=== PATIENT | female | born 1945 | race Caucasian/White ===

== ENCOUNTER 2021-11-21 17:07 | Inpatient (IN) | payer MEDICARE, SELFPAY ==
[2021-11-21] VITALS (11 sets, daily range): BP systolic 94–164; BP diastolic 51–90; PULSE 91–119; RESP 22–95; TEMP 37; O2SAT 30–100
--- NOTE | ~2021-11-21 | XR_ITS ---
EXAMINATION: XR chest 1V portable EXAM DATE: 11/24/2021 14:20 INDICATION: COVID pneumonia. TECHNIQUE: Portable AP frontal chest x-ray was obtained. Comparison is made to prior examination from 11/23/21. FINDINGS: Moderate amount of bilateral mid and lower lung zone ill-defined abnormal reticulation, air space disease, pneumonia and/or edema. Please clinically correlate. No pneumothorax or pleural effusi on. Mild cardiomegaly. There are mild bony degenerative changes. IMPRESSION: Moderate amount of pneumonia and/or edema unchanged. Reviewed, dictated and finalized at location G. TED CLOTH EXAMINER
--- NOTE | ~2021-11-21 | US_ITS ---
EXAMINATION: US venous doppler LE EXAM DATE: 11/22/2021 09:52 INDICATION: Pulmonary embolism, lower extremity swelling. TECHNIQUE: Multiple grayscale, color flow and Doppler images of the lower extremity deep venous syste ms bilaterally were obtained and reviewed. There is no prior study for comparison. FINDINGS: Right side: The right common femoral, femoral and profunda veins demonstrate normal color flow, respi ratory variation, augmentation and compressibility. Compressibility, color flow confirmed within the right popliteal, posterior tibial, peroneal, and greater saphenous veins. Left side: The left common femoral, femoral and profunda veins demonstrate normal color flow, respira tory variation, augmentation and compressibility. Compressibility, color flow confirmed within the l eft popliteal, posterior tibial, peroneal, and greater saphenous veins. IMPRESSION: No lower extremity deep venous thrombosis bilaterally. Reviewed, dictated and finalized at location A. TRIC CLOCK MECHANIC
--- NOTE | ~2021-11-21 | XR_ITS ---
EXAMINATION: XR chest 1V portable INDICATION: Shortness of breath, COVID 19 positive TECHNIQUE: Portable AP chest at 1831 hours COMPARISON: 05/06/2007 FINDINGS: There are airspace opacities throughout the left lung and in the right mid and lower lung z ones. Small pleural effusions are suggested. There is no pneumothorax. The cardiomediastinal silhouet te is stable. IMPRESSION: 1. Airspace opacities throughout the left lung and in the right mid and lower lung zones, likely COVI D 19 pneumonia. 2. Possible small pleural effusions. Reviewed, dictated and finalized at location F. QUER IMPRESSION: 1. Airspace opacities throughout the left lung and in the right mid and lower l gene zones, likely COVID 19 pneumonia. 2. Possible small pleural effusions.
--- NOTE | ~2021-11-21 | XR_ITS ---
EXAMINATION: XR chest 1V portable DATE: 11/23/2021 08:39 INDICATION: COVID. Shortness of breath. TECHNIQUE: frontal view of the chest was obtained. COMPARISON: Chest radiograph and CT dated 11/21/2021 FINDINGS: Slight interval improvement in groundglass opacities in the left mid and right lower lung zones and m ore dense opacities with air bronchograms in the left lower lung zone consistent with improving pneum onia. No pleural effusion or pneumothorax. Cardiomegaly. IMPRESSION: 1. Slight decrease in bilateral basilar predominant lung disease consistent with improving pneumonia. 2. Cardiomegaly. Reviewed, dictated and finalized at location A. MOBILE SERVICE ADVISOR IMPRESSION: 1. Slight decrease in bilateral basilar predominant lung disease consistent wit h improving pneumonia. 2. Cardiomegaly.
--- NOTE | ~2021-11-21 | XR_ITS ---
XR chest 1V portable DATE: 11/28/2021 06:06 INDICATION: Covid pneumonia TECHNIQUE: Portable AP chest on 11/28/2021 0545 hours COMPARISON: 11/24/2021 portable AP chest at 1412 hours FINDINGS: Cardiomegaly. There is pulmonary vascular congestion and redistribution. The minor fissure is prominent suggesting subpleural edema. There are diffuse bilateral pulmonary infiltrates, most prominent in the lower lung zones, with bilat eral lower lobe air bronchograms. Differential diagnosis includes pulmonary edema and/or pneumonia. IMPRESSION: Diffuse bilateral pulmonary infiltrates with greater prominence in the lower lung zones i ncluding bilateral lower lobe air bronchograms, increased since 11/24/2021 Congestive changes, increased since 11/24/2021 Cardiomegaly Reviewed, dictated and finalized at location A. UNITY INTEGRATION SPECIALIST IMPRESSION: Diffuse bilateral pulmonary infiltrates with greater prominence in the lower lung zones including bilateral lower lobe air bronchograms, increased since 11/24/2021 Congestive changes, increased since 11/24/2021 Cardiomegaly
--- NOTE | ~2021-11-21 | CT_ITS ---
EXAMINATION: CTA chest PE protocol DATE: 11/21/2021 21:31 INDICATION: Shortness of breath and weakness, COVID 19 positive TECHNIQUE: Computed tomography angiography (CTA) of the chest was performed with 100 mL Omnipaque-350 intravenous contrast timed to evaluate the pulmonary arteries. Coronal maximum intensity projection 3D-reconstructions were created by the technologist. The dose-length product (DLP) was 644.16 mGy-cm. Automated exposure control and iterative reconstruction technique were employed. COMPARISON: None. FINDINGS: The pulmonary arteries are well-opacified. Respiratory motion artifact limits the examinati on. There are pulmonary emboli in the right middle lobe. There are interstitial and airspace opacitie s in the mid and lower lung zones. Patchy groundglass opacities are present in the lung apices. There are trace pleural effusions. No pneumothorax is identified. The heart size is normal. There is mild thoracic spondylosis. IMPRESSION: 1. Acute pulmonary emboli in the right middle lobe. 2. Diffuse lung disease, consistent with COVID 19 pneumonia. These findings were discussed with Dr. Greta MD in the Emergency Department at 2146 hours on 11/10. Reviewed, dictated and finalized at location F. SHADES SUPERVISOR IMPRESSION: 1. Acute pulmonary emboli in the right middle lobe. 2. Diffuse lung disease, consistent with COVID 19 pneumonia. These findings were discussed with Dr. Greta MD in the Emergency Departmen t at 2146 hours on 11/21/2021.
--- NOTE | 2021-11-21 17:38 | PCCCNOTE ---
Called by charge nurse concerning pt. Per EMS pt has severe hoarding problem and the house maybe condemned. Pt has 2 daughters who both state that they are currently COVID positive. Pt is currently being evaluated for medical stability. Pt will probably not be able to return home.
--- NOTE | 2021-11-21 17:59 | ED.GENADULT ---
HPI - General Adult General Chief complaint: Upper Respiratory Infection Stated complaint: FEVER/DIFFICULTY BREATHING Time Seen by Provider: 11/21/21 17:55 History of Present Illness HPI narrative: 76-year-old female present to the emergency department for evaluation of COVID symptoms. EMS states that the patient has been on her couch since November 12. They report that the patient's daughter was bringing her food to the couch and patient had not been leaving the couch. EMS states that the patient had been urinating and defecating on the couch. EMS states that the patient's daughter also has COVID. Patient was saturating in the 70s upon arrival by EMS and patient was placed on a nonrebreather. When asked if the patient was vaccinated the patient replied COVID is not real, my daughter does not have covid . Related Data Allergies Allergy/AdvReac Type Severity Reaction Status Date / Time No Known Allergies Allergy Verified 11/21/21 17:24 Review of Systems Review of Systems: CONSTITUTIONAL: Denies fever, chills, or sweats. EYES: Denies visual changes, redness, or discharge. ENT: Denies rhinorrhea, congestion, sore throat, or otalgia. CARDIOVASCULAR: Denies chest pain, palpitations, or edema. RESPIRATORY: Does report cough and shortness of breath GASTROINTESTINAL: Denies abdominal pain, nausea, vomiting, or diarrhea. GENITOURINARY: Denies dysuria or hematuria. SKIN: Denies rash or itching. MUSCULOSKELETAL: Denies back pain, joint pain, or myalgia. NEUROLOGIC: Denies headache, numbness, or weakness. PSYCHIATRIC: Denies anxiety or depression. 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 Controlled diabetes mellitus type II without complication Essential (primary) hypertension Family history of colon cancer in mother Fatigue Fibromyalgia Gastro-esophageal reflux disease without esophagitis Mixed hyperlipidemia Obesity Recurrent UTI Syncope Vitamin B12 deficiency anemia Vitamin D deficiency, unspecified Surgical History Surgical History History of section History of tonsillectomy S/P foot surgery, left S/P foot surgery, right Family History Family History Mother Carcinoma of colon Family history of cardiovascular disease, Onset Age: 94 Sibling Carcinoma of colon Family history of malignant neoplasm of ovary, Onset Age: 77 Patient's brother is , Onset Age: 60 Father Patient's father is Family history of lung cancer, Onset Age: 67 Grandparent Family history of cardiovascular disease Other Family history of malignant neoplasm of male breast Social History Social History (Updated 11/22/21 @ 06:22 by Yaa King DO) Social History: The patient is and lives alone. the patient lives in a hoarding situation. Primary care physician: Dr. Paulo Robins Code status: Full code Surrogate decision maker: Brittani Chamberlain (daughter) Smoking status: Never smoker Second hand tobacco smoke exposure: No Alcohol intake: current Substance use: never Substance use type: does not use Living arrangements: alone Spiritual care concerns: No Exam Narrative: APPEARANCE: Ill-appearing but no distress HEAD: normocephalic, atraumatic. EYES: PERRLA/EOMI, conjunctivae clear. NECK: Supple. No adenopathy, no masses. RESPIRATORY: Bilateral rhonchi CARDIOVASCULAR: Tachycardia ABDOMINAL: Soft, nontender, nondistended, normal bowel sounds MUSCULOSKELETAL: Moves all extremities. Strength/ROM intact, No edema, No calf tenderness. NEURO: Alert. Cranial nerves II through XII int
[2021-11-21] MEDS: DEXAMETHASONE 2 MG TABLET 6 MG PO (18:23)
--- NOTE | 2021-11-21 19:10 | PC.NURSE ---
This RN into room to swab pt for COVID. Pt states I do not want to be swabbed. Covid is not real. RN speaking with pt regarding COVID swab and explaining why doctor would like it. Pt states My daughter does not have COVID. NO one has COVID. COVID is not real. EDP and charge loader made aware pt continues declining to be swabbed for COVID.
[2021-11-21] MEDS: SODIUM CHLORIDE 0.9% IV 1,000 ML 999 ML IV CONT (19:15)
--- NOTE | 2021-11-21 19:20 | PC.NURSE ---
Report given to JILLIAN Joiner
--- NOTE | 2021-11-21 19:20 | PC.NURSE ---
Assumed care of pt at this time. Pt alert and upright on stretcher, on Bipap. Updated on POC.
[2021-11-21 20:16] LABS: Basophils Absolute Auto 0.1 K/mm3 (0.0-0.1); Basophils Percent Auto 0.6 % (0.2-1.2); Eosinophils Percent Auto 0.1 % (0-4.4); Hematocrit 45.6 % (37.0-47.0); Hemoglobin 15.3 g/dL (12.0-15.0); Immature Granulocyte Absolute 1.01 K/mm3 (0.00-0.031); Immature Granulocyte Percent A 5.4 % (0-0.5); Lymphocytes Absolute Auto 0.74 K/mm3 (0.9-3.2); Mean Corpuscular HGB Conc 33.6 g/dl (32-36); Mean Corpuscular Hemoglobin 32.1 pg (26-34); Mean Corpuscular Volume 95.8 fl (80-100); Mean Platelet Volume 11.2 fl (7.4-10.4); Monocytes Absolute Auto 0.8 K/mm3 (0.1-0.6); Monocytes Percent Auto 4.5 % (2.6-8.5); Neutrophils Percent Auto 85.4 % (45.5-73.1); Platelet Count Result 243 k/mm3 (150-375); Red Blood Count 4.76 M/mm3 (4.2-5.4); Red Cell Distribution Width 13.3 % (11.5-14.5); White Blood Count 18.7 K/mm3 (4.5-10.0)
[2021-11-21 20:24] LABS: Alanine Aminotransferase 58 U/L (4-35); Albumin Level 3.1 g/dL (3.5-5.1); Alkaline Phosphatase 47 U/L (38-126); Anion Gap 6 mmol/L (8-16); Aspartate Amino Transferase 67 U/L (14-36); Blood Urea Nitrogen 38 mg/dL (7-17); Calcium 8.4 mg/dL (8.4-10.2); Carbon Dioxide 31 mmol/L (22-30); Chloride 95 mmol/L (98-107); Estimated CRCL calculation 54 ml/min; Estimated Glomerular Filt Rate > 60; Glucose 172 mg/dL (65-110); Potassium 4.1 mmol/L (3.4-5.0); Sodium 132 mmol/L (137-145)
[2021-11-21 20:26] LABS: INR 1.2; Prothrombin Time 15.3 Seconds (11.1-14.7)
[2021-11-21 20:27] LABS: CRP 8.9 mg/dL (<1.0); Lactate Dehydrogenase 824 U/L (313-618)
[2021-11-21 20:55] LABS: D Dimer 2.94 ug/mL (<0.48)
--- NOTE | 2021-11-21 21:15 | PC.NURSE ---
Addendum entered by Marisel Leon RN 11/21/21 21:15: Respiratory to assist Original Note: Pt to CT at this time.
--- NOTE | 2021-11-21 21:18 | ECG_ITS ---
Measurements Intervals [place] Rate: 114 P: 49 [place]: 130 QRS: -37 QRSD: 83 T: -15 QT: 318 QTc: 439 Interpretive Statements SINUS TACHYCARDIA WITH SHORT [place] INTERVAL ATRIAL PREMATURE COMPLEXES LEFT AXIS DEVIATION VOLTAGE CRITERIA FOR LVH BORDERLINE T WAVE ABNORMALITY- ANTEROLAT/INF LEADS BASELINE ARTIFACT- II, V3 ABNORMAL ECG Electronically Signed On 11-22-2021 6:03:25 MARKETING INFORMATION ANALYST by Jelani Mayo D.O.
[2021-11-21 21:46] LABS: Alveolar/Arterial O2 Gradient 614.4 mmHg; Base Excess ABG 1.8 mEq/l (+/-2.0); Fractional Inspired Oxygen 100 %; HCO3 ABG 25.2 mEq/l (22.0-26.0); Oxygen Content ABG 18.9 %vol (16.0-22.0); Oxygen Saturation ABG 93.5 % (95.0-100.0); Oxyhemoglobin 91.4 % THb (90.0-100.0); PCO2 ABG 35.6 mmHg (35.0-45.0); PO2 FiO2 Ratio Arterial Blood 0.63 %; Total Hemoglobin 14.7 g/dL (12.0-18.0); pH ABG 7.467 (7.350-7.450)
[2021-11-21 21:48] LABS: Device BIPAP; Inspiratory Pressure 12 cmH2O; Modified Allen's Test Pass; Site Drawn LEFT RADIAL
[2021-11-21 21:49] LABS: Expiratory Pressure 5 cmH2O
--- NOTE | 2021-11-21 21:53 | PM.IMHP ---
H&P: HPI History of Present Illness Date/Time: 11/21/21 22:30 Chief Complaint: Shortness of breath Narrative: 76-year-old female past medical history of diabetes, hypertension and hyperlipidemia who presented to the ER from home with shortness of breath, fever and weakness. The patient's daughter who is been bringing the patient food and water is known to be positive for COVID. The patient had not been vaccinated against COVID and does not believe that COVID is real. She has voiced several conspiracy theories. She states that her symptoms are due to strep throat. She she believes that she has strep throat due to the sensation of having multiple white ulcers in her mouth. She states that she has had strep throat multiple times in this is always how she feels. The patient is currently refusing a COVID test. When EMS arrived to the patient's home she was satting 70% on room air. She was placed on a non-rebreather was satting 88-89% on arrival to the ER. She was placed on BiPAP in the ER. When patient arrived to the ER she was covered in feces and stool. Her daughter reported the patient had not gotten off the couch since November 12. She had skin breakdown noted to bilateral buttocks. EMS reports that the patient was living in a hoarding situation and the patient had to be taken out of the house through a window in the [place] basket. EMS to certain the patient's home will be condemned. Patient is still refusing COVID testing but chest x-ray is consistent with COVID pneumonia. Patient also has CTA performed in the ER which was consistent with finding of COVID and was positive for right middle lobe pulmonary embolism. The patient does report bilateral lower extremity swelling that has been worse over the last couple of weeks. She denies any calf pain. She denies any chest pain. She has not been having any palpitations. The patient repeatedly tells me that she needs to urinate. She denies any recent dysuria. She has chronic urinary frequency. I could not get further review of systems performed on the patient as she needed assistance with the bedpan and was not willing to provide much more information concerning she did not believes that she had COVID. Review of Systems Review of Systems: 12 systems were reviewed with pertinent positives and negatives per HPI. Except as documented in the HPI, all other systems were reviewed and are negative. 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 back pain with right-sided sciatica Controlled diabetes mellitus type II without complication Essential (primary) hypertension Family history of colon cancer in mother Fatigue Fibromyalgia Gastro-esophageal reflux disease without esophagitis Mixed hyperlipidemia Obesity Recurrent UTI Syncope Vitamin B12 deficiency anemia Vitamin D deficiency, unspecified Surgical History Surgical History History of section History of tonsillectomy S/P foot surgery, left S/P foot surgery, right Family History Family History Mother Carcinoma of colon Family history of cardiovascular disease, Onset Age: 94 Sibling Carcinoma of colon Family history of malignant neoplasm of ovary, Onset Age: 77 Patient's brother is , Onset Age: 60 Father Patient's father is Family history of lung cancer, Onset Age: 67 Grandparent Family history of cardiovascular disease Other Family history of malignant neoplasm of male breast Social History Social History (Updated 11/22/21 @ 06:22 by Yaa King DO) Social History: The patient is and lives alone. the patient lives in a [facility]
[2021-11-21] MEDS: ENOXAPARIN 100 MG/ML SYRINGE 95 MG SUB-Q (22:16)
--- NOTE | 2021-11-21 22:54 | PC.NURSE ---
This RN attempted to straight cath pt, but was unsuccessful. pt able to urinate in urine cup with proper cleaning for clean catch.
--- NOTE | 2021-11-21 23:00 | ECG_ITS ---
Measurements Intervals [place] Rate: 101 P: 58 [place]: 136 QRS: -30 QRSD: 92 T: 26 QT: 364 QTc: 472 Interpretive Statements SINUS TACHYCARDIA LEFT AXIS DEVIATION DELAYED PRECORDIAL R/S TRANSITION LOW QRS VOLTAGE IN PRECORDIAL LEADS NONSPECIFIC ST & T-WAVE ABNORMALITY- ANTEROLAT/INF LEADS BASELINE ARTIFACT- I, II, III, AVR, AVL, AVF, V1, V4-V6 BORDERLINE ECG Electronically Signed On 11-26-2021 13:42:35 CANVAS REPAIRER by Jelani Mayo D.O.
[2021-11-21 23:17] LABS: Add Urine Microscopic? YES; Appearance Urine Clear (Clear); Bacteria Urine Trace /hpf; Bilirubin Urine Negative (Negative); Blood Urine 2+ (Negative); Color Urine Yellow (Yellow); Glucose Urine UA 1+ mg/dL (Negative); Ketones Urine Trace mg/dL (Negative); Leukocyte Esterase Ur 3+ LEU/UL (Negative); Mucus Urine Rare /lpf; Nitrate Urine Negative (Negative); Protein Urine Negative (Negative); Squamous Epithelial Cell Urine Moderate /hpf (Few); WBC Urine 21-30 /hpf
[2021-11-21 23:24] LABS: Specific Grav Ur 1.044 (1.001-1.035)
[2021-11-22] VITALS (31 sets, daily range): BP systolic 105–171; BP diastolic 57–95; PULSE 84–124; RESP 21–41; TEMP 36.2–36.7; O2SAT 88–98; BMI 34.9
--- NOTE | 2021-11-22 | ECHO_ITS ---
Patient Info Name: Radha Snell Age: 76 years : 1945 Gender: Female Ht: 65 in Wt: 209 lbs BSA: 2.12 m2 HR: 101 bpm BP: 121 / 60 mmHg Technical Quality: Poor Exam Date: 11/22/2021 10:57 AM Exam Location: [facility] Patient Status: Inpatient Admit Date: 11/21/2021 Staff Ordering Physician: Yaa King DO Acid Painter: Gui Steel RDCS, RT Attending Provider: Yaa King DO Referring Physician: Fernando CONROY; Exam Type: CA echo doppler color flow Study Info Indications I27.82 - Chronic pulmonary embolism Complete two-dimensional, color flow and Doppler transthoracic echocardiogram is performed. Summary 1. Complete two-dimensional, color flow and Doppler transthoracic echocardiogram is performed. 2. Technically suboptimal study due to poor sonographic images. 3. Left ventricular chamber dimension is normal. 4. Left ventricular systolic function is normal, estimated at 65-70%. 5. The left ventricular diastolic function is indeterminate. 6. No pulmonary hypertension, estimated pulmonary arterial systolic pressure is 37 mmHg. Left Ventricle Technically suboptimal study due to poor sonographic images. Tissue doppler is not performed. Left ventricular chamber dimension is normal. Left ventricular systolic function is normal, estimated at 65-70%. The left ventricular diastolic function is indeterminate. Right Ventricle Right ventricular chamber dimension is not well visualized. In subcostal images, right ventricular contractility appears to be normal with normal size. Left Atria Left atrial chamber dimension is normal. Right Atria Right atrial chamber dimension is not well visualized. Aortic Valve The aortic valve is not well visualized. Cannot determine the number of aortic valve leaflets. There is no aortic valve stenosis. There is no aortic valve regurgitation. Pulmonic Valve The pulmonic valve is not well visualized. Mitral Valve There is no mitral valve stenosis. There is no mitral valve regurgitation. Tricuspid Valve The tricuspid valve leaflets are not well visualized. No pulmonary hypertension, estimated pulmonary arterial systolic pressure is 37 mmHg. Pericardium/Pleural There is no pericardial effusion. Inferior Vena Cava Normal inferior vena cava with >50% collapse upon inspiration consistent with normal right atrial pressure, 5 mmHg. Aorta The aortic root size at the sinus of Valsalva is normal. Left Ventricular Outflow Tract Name Value Normal LVOT 2D LVOT Diameter 2.0 cm LVOT Doppler LVOT Peak Gradient 2 mmHg LVOT Mean Gradient 1 mmHg LVOT VTI 9 cm LVOT VTI/AV VTI Ratio 0.5 LVOT Stroke Volume 31 ml LVOT CO 3.1 l/min LVOT CI 1.5 l/min/m2 Tricuspid Valve Name Value Normal
[2021-11-22] MEDS: SODIUM CHLORIDE 0.9% IV 1,000 ML 125 ML IV CONT (02:20)
[2021-11-22] MEDS: ALBUTEROL SULFATE NEB 2.5 MG/0.5 ML INH 5 MG INHALATION ×4 (02:48→20:20)
[2021-11-22] MEDS: IPRATROPIUM BR 0.02% INH SOLN 0.5 MG/2.5 ML VIAL INHALATION ×4 (02:48→20:20)
--- NOTE | 2021-11-22 05:00 | PC.NURSE ---
Report called to IMU. Respiratory called to come assist with transport.
--- NOTE | 2021-11-22 06:18 | ADMGEN ---
This patient, Radha Snell, was admitted to IMU Room 232-01 on 11/22/21 at 0530. Patient/family oriented to hospital policies and general routines including ID bracelet, bed and alarms, visiting hours, pain management, procedures, bathroom and other care routines, personal items, smoking policy, room service/diet, and visiting hours. Information on how to activate the Rapid Response Team has been discussed. Patient/Family are encouraged to report perceived risks to care and to ask questions if they do not understand what they are told or what they should do.
[2021-11-22 07:51] LABS: Basophils Absolute Auto 0.1 K/mm3 (0.0-0.1); Basophils Percent Auto 0.8 % (0.2-1.2); Hematocrit 46.4 % (37.0-47.0); Hemoglobin 15.5 g/dL (12.0-15.0); Immature Granulocyte Absolute 0.86 K/mm3 (0.00-0.031); Lymphocytes Absolute Auto 0.55 K/mm3 (0.9-3.2); Lymphocytes Percent Auto 3.2 % (18.3-44.2); Mean Corpuscular HGB Conc 33.4 g/dl (32-36); Mean Corpuscular Hemoglobin 31.8 pg (26-34); Mean Corpuscular Volume 95.1 fl (80-100); Mean Platelet Volume 11.2 fl (7.4-10.4); Monocytes Absolute Auto 0.8 K/mm3 (0.1-0.6); Monocytes Percent Auto 4.4 % (2.6-8.5); Neutrophils Percent Auto 86.6 % (45.5-73.1); Platelet Count Result 258 k/mm3 (150-375); Red Blood Count 4.88 M/mm3 (4.2-5.4); Red Cell Distribution Width 13.2 % (11.5-14.5); White Blood Count 17.3 K/mm3 (4.5-10.0)
[2021-11-22 08:02] LABS: Alanine Aminotransferase 50 U/L (4-35); Alkaline Phosphatase 49 U/L (38-126); Anion Gap 5 mmol/L (8-16); Aspartate Amino Transferase 56 U/L (14-36); Bilirubin,Total 0.8 mg/dL (0.2-1.3); Blood Urea Nitrogen 29 mg/dL (7-17); Calcium 8.5 mg/dL (8.4-10.2); Carbon Dioxide 32 mmol/L (22-30); Chloride 98 mmol/L (98-107); Estimated CRCL calculation 60 ml/min; Estimated Glomerular Filt Rate > 60; Glucose 203 mg/dL (65-110); Potassium 4.2 mmol/L (3.4-5.0); Sodium 135 mmol/L (137-145)
[2021-11-22 09:01] LABS: CRP 12.2 mg/dL (<1.0)
[2021-11-22] MEDS: ENOXAPARIN 100 MG/ML SYRINGE 95 MG SUB-Q ×2 (09:22→21:17)
--- NOTE | 2021-11-22 09:55 | PM.IMPN ---
Progress Note: A&P Assessment and Plan (1) Acute respiratory failure with hypoxia: Code(s): J96.01 - Acute respiratory failure with hypoxia Status: Acute Assessment and Plan: Mell currently on BiPAP 100% FiO2 12/5 with rate of 16. TV 534. She is borderline at 92%. Will adjust her BiPAP settings and repeat ABG in 1 hour. Pulmonary consult. Will speak with family about the patient's wishes since may need to proceed with comfort measures if she worsens. Discussed with daughter who is in agreement with DNR status. We discussed comfort measures if the patient worsens. All questions answered. 38 minutes on critical care time. Change to DNR status. (2) Pulmonary embolism: Qualifiers: Pulmonary embolism type: single subsegmental (without acute cor pulmonale) Qualified Code(s): I26.93 - Single subsegmental pulmonary embolism without acute cor pulmonale Code(s): I26.99 - Other pulmonary embolism without acute cor pulmonale Status: Acute Assessment and Plan: Mell present with acute resp failure. DDimer 2.9 felt related to COVID but high risk for PE given the prolonged inactivity prior to admission. She has CTA chest showing RML PE and diffuse disease consistent with COVID PNA. Doppler of the LE negative for DVT. She has been started on Lovenox therapeutic dosing. (3) Pneumonia due to COVID-19 virus: Onset Date: ~11/11/21 Code(s): U07.1 - COVID-19; J12.82 - Pneumonia due to coronavirus disease 2019 Status: Acute Assessment and Plan: Patient presents with acute respiratory hypoxic failure. CTA chest showing diffuse disease consistent with COVID PNA. She refuses COVID testing. She has not been vaccinated. Ferritin 762, CRP 12.2 and LDH 824. She was started on Dexamethasone. She refused Remdesivir and baracitinib (explained would need a test to verify diagnosis but she refuses to be tested for COVID as well). She states the Remdesivir is what is killing people in the hospital but she was disabused of this false narrative. She voiced understanding that by limiting therapeutic options that this may decrease her change of survival. She voices understanding. (4) Dehydration: Code(s): E86.0 - Dehydration Status: Acute Assessment and Plan: Dehydrated on admission. Currently on IV fluids. Since she has COVID, will stop IV fluids. Consider TPN or NGT placement for TF if she is BiPAP dependent for a prolonged period. (5) Transaminitis: Code(s): R74.01 - Elevation of levels of liver transaminase levels Status: Acute Assessment and Plan: LFTs mildly elevated felt related to COVID. Levels trending down. (6) Essential (primary) hypertension: Code(s): I10 - Essential (primary) hypertension Status: Acute Assessment and Plan: Patient's blood pressure was reviewed on 11/22 Blood pressure remains well controlled. Will continue to monitor. Will hold lisinopril for now. (7) Controlled diabetes mellitus type II without complication: Code(s): E11.9 - Type 2 diabetes mellitus without complications Status: Acute Assessment and Plan: The patient's blood glucose was reviewed on 11/22 Glucose remains poorly controlled. Diabetec diet. Start AccuCheks covering with sliding scale. Hypoglycemia protocol will be available as needed. Continue to monitor Subjective Date/time seen: 11/22/21 09:55 Interval history: 76yo female with DM and HTN for fever, cough and shortness of breath. Patient denies chest pain. She has minimal cough worse when she takes deep breaths. No n/v. Feels SOB and currently BiPAP dependent. She is AOx4 and states she does not want intubation and that she has informed her family of this. She provides verbal permission for me to speak with her dtr. Exam Narrative: AF 97.2 140/95 98 28 91% BiPAP Gen - BiPAP in place, tachypneic with talking Chest - mildly coarse ante
--- NOTE | 2021-11-22 11:15 | PM.CNPUL ---
Assessment and Plan Assessment and plan (1) Pneumonia due to COVID-19 virus: Onset Date: ~11/11/21 Code(s): U07.1 - COVID-19; J12.82 - Pneumonia due to coronavirus disease 2018 Status: Acute Assessment and Plan: Patient Exposed to a daughter who is COVID positive. Patient is on vaccinated and refuses to get tested for COVID as she does not recognize this disease. CT angiogram of the chest demonstrates a PE as well as bilateral patchy infiltrates characteristic of COVID pneumonia and I will treat her for COVID pneumonia. She is willing to take steroids but is unwilling to take REM test of air or any other medicines for COVID at this time. - Dexamethasone 6 mg IV for 10 days - Continuous pulse oximetry - Prone positioning as tolerated. - Avoid any fluid overload. - emperic azithromycin and ceftraixone for CAP started 11/21. - Albuterol inhaler Q 4 for now, no wheezes. - Will check influenza swab. Keep saturations are 90-94% with Noninvasive ventilation with the AVAPS mode. Would increase EPAP for additional hypoxemia Patient is DNR. will follow with you. (2) Acute respiratory failure with hypoxia: Code(s): J96.01 - Acute respiratory failure with hypoxia Status: Acute Assessment and Plan: Etiology of hypoxic respiratory failure is likely COVID pneumonia. BNP is 228 but there is no evidence of fluid overload. Echo 11/23. 11/21 17:15 15 L NRB sats 88% 11/21 18:12 BiPAP 16, 12/5 100%, sats 92% 11/22 09:42 BiPAP 16, 12/5 100%, sats 92% 11/22 12:00 AVAPS 500, E 8, I PAP 9-25, 100%, sats 96% (3) Pulmonary embolism: Qualifiers: Pulmonary embolism type: single subsegmental (without acute cor pulmonale) Qualified Code(s): I26.93 - Single subsegmental pulmonary embolism without acute cor pulmonale Code(s): I26.99 - Other pulmonary embolism without acute cor pulmonale Status: Acute Assessment and Plan: Patient with a PE right middle lobe provoked by COVID pneumonia. Patient is hemodynamically stable. BNP is 228, troponin is negative at less than 0.012. Agree with continued anticoagulation with Lovenox b.i.d.. History of Present Illness History of Present Illness Consult date: 11/22/21 Requesting physician: Rey Mccloud MD Reason for consult: hypoxemia, pulmonary embolism and other (COVID pneumonia) Chief complaint: Pneumonia Narrative: 11/22/2021: This is a new pulmonary consult for presumed COVID and hypoxemic respiratory failure. 76-year-old woman with a history of diabetes, hypertension, hyperlipidemia who has been exposed to her COVID positive daughter recently presented to the emergency department on 11/21/2020 with shortness of breath. Per the chart she had been sitting on her coat couch since 11/12 and covered in feces and urine when she was extricated from her house. On arrival to the emergency room she was in respiratory distress and hypoxemic. patient had hypoxemic respiratory failure with saturations 88% on 15 L non-rebreather mask when she arrived to the emergency department. Patient was placed on BiPAP / with 100% FiO2 and had a blood gas of 7.46/36/63. She had a white blood cell count of 18.7, D-dimer of 2.94, CT angiogram of the chest that demonstrated a right middle lobe pulmonary embolism and diffuse bilateral multifocal ground-glass and interstitial infiltrates consistent with COVID pneumonia. Her lower extremity Dopplers were negative. Patient refused being tested for COVID. Patient was started on dexamethasone on 11/21 and the patient adamantly refused any additional treatments for COVID as she has does not recognize this disease. She was empirically started on ceftriaxone and azithromycin. Patient smoked tobacco from age [age] at 1 pack per day. 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 11/22 Patient states she feels about the
[2021-11-22 11:49] LABS: NT Pro B Type Natriuretic Pept 228 pg/mL (5-100)
[2021-11-22 11:55] LABS: Troponin I < 0.012 ng/mL (0.000-0.034)
[2021-11-22] MEDS: INSULIN ASPART (*BKC) 100 UNITS/ML SUB-Q (12:14)
[2021-11-22 12:44] LABS: Glucose Point of Care 201 mg/dl (65-105)
[2021-11-22 18:00] LABS: Glucose Point of Care 174 mg/dl (65-105)
--- NOTE | 2021-11-22 22:28 | PC.NURSE ---
Pt refused flu swab that Dr Moore requested.
[2021-11-23] VITALS (21 sets, daily range): BP systolic 135–160; BP diastolic 73–106; PULSE 98–136; RESP 20–118; TEMP 37.2–38.5; O2SAT 90–99
[2021-11-23 00:26] LABS: Glucose Point of Care 181 mg/dl (65-105)
[2021-11-23] MEDS: ALBUTEROL SULFATE NEB 2.5 MG/0.5 ML INH 5 MG INHALATION ×4 (02:16→21:24)
[2021-11-23] MEDS: IPRATROPIUM BR 0.02% INH SOLN 0.5 MG/2.5 ML VIAL INHALATION ×4 (02:16→21:25)
[2021-11-23] MEDS: METOPROLOL TARTRATE INJ 5 MG/5 ML VIAL IV PUSH (05:13)
[2021-11-23 05:43] LABS: Basophils Percent Auto 0.3 % (0.2-1.2); Hematocrit 44.4 % (37.0-47.0); Hemoglobin 14.7 g/dL (12.0-15.0); Immature Granulocyte Absolute 0.54 K/mm3 (0.00-0.031); Immature Granulocyte Percent A 3.5 % (0-0.5); Lymphocytes Absolute Auto 0.58 K/mm3 (0.9-3.2); Lymphocytes Percent Auto 3.8 % (18.3-44.2); Mean Corpuscular HGB Conc 33.1 g/dl (32-36); Mean Corpuscular Volume 96.7 fl (80-100); Mean Platelet Volume 10.8 fl (7.4-10.4); Monocytes Absolute Auto 0.8 K/mm3 (0.1-0.6); Monocytes Percent Auto 5.3 % (2.6-8.5); Neutrophils Absolute Auto 13.4 K/mm3 (1.3-6.7); Neutrophils Percent Auto 87.1 % (45.5-73.1); Platelet Count Result 313 k/mm3 (150-375); Red Blood Count 4.59 M/mm3 (4.2-5.4); Red Cell Distribution Width 13.4 % (11.5-14.5); White Blood Count 15.4 K/mm3 (4.5-10.0)
[2021-11-23 06:16] LABS: Alanine Aminotransferase 40 U/L (4-35); Albumin Level 2.9 g/dL (3.5-5.1); Alkaline Phosphatase 53 U/L (38-126); Anion Gap 7 mmol/L (8-16); Aspartate Amino Transferase 47 U/L (14-36); Bilirubin,Total 0.6 mg/dL (0.2-1.3); Blood Urea Nitrogen 21 mg/dL (7-17); CRP 12.1 mg/dL (<1.0); Calcium 8.6 mg/dL (8.4-10.2); Carbon Dioxide 28 mmol/L (22-30); Chloride 101 mmol/L (98-107); Estimated CRCL calculation 58 ml/min; Estimated Glomerular Filt Rate > 60; Glucose 161 mg/dL (65-110); Magnesium 2.2 mg/dL (1.6-2.3); Phosphorus 2.6 mg/dL (2.5-4.5); Potassium 3.6 mmol/L (3.4-5.0); Sodium 136 mmol/L (137-145)
--- NOTE | 2021-11-23 07:39 | PM.PNPUL ---
Progress Note: A&P Assessment and Plan (1) Pneumonia due to COVID-19 virus: Onset Date: ~11/11/21 Code(s): U07.1 - COVID-19; J12.82 - Pneumonia due to coronavirus disease 2019 Status: Acute Assessment and Plan: 11/22 Patient exposed to a daughter who is COVID positive. Patient is unvaccinated and refuses to get tested for COVID as she does not recognize this disease. CT angiogram of the chest demonstrates a PE as well as bilateral patchy infiltrates characteristic of COVID pneumonia and I will treat her for COVID pneumonia. She is willing to take steroids but is unwilling to take remdesivir or any other medicines for COVID at this time. - Dexamethasone 6 mg IV for 10 days - Continuous pulse oximetry - Prone positioning as tolerated. - Avoid any fluid overload. - emperic azithromycin and ceftraixone for CAP started 11/21. - Albuterol inhaler Q 4 for now, no wheezes. - ABG 7.47/36/63 So no evidence of hypercarbic respiratory failure. - Will check influenza swab. She refused Keep saturations are 90-94% with Noninvasive ventilation with the AVAPS mode. Would increase EPAP for additional hypoxemia Patient is DNR. 11/23 patient remains on continuous noninvasive ventilation with the AVAPS mode. She is less communicative today she does arouse and talk when stimulated. She does follow simple commands. She was on the above AVAPS setting on 95% FIO2 with sats 89%. I increased the FiO2 to 100, increase the EPAP to 12 and she had increased leaks so I changed the rise to 3. Saturations 91%. Worsening oxygenation. Patient is DNR with RR 34 and is lethargic but appears comfortable on the nonivasive ventilation. Will follow with you. (2) Acute respiratory failure with hypoxia: Code(s): J96.01 - Acute respiratory failure with hypoxia Status: Acute Assessment and Plan: Etiology of hypoxic respiratory failure is likely COVID pneumonia. BNP is 228 but there is no evidence of fluid overload. Echo with EF 65-70, RV normal size and function, RA no visualized, PASP 37. 11/21 17:15 15 L NRB sats 88% 11/21 18:12 BiPAP 16, 12/5 100%, sats 92% 11/22 09:42 BiPAP 16, 12/5 100%, sats 92% 11/22 12:00 AVAPS 500, E PAP 8, I PAP 9-25, 100%, sats 96% 11/22 20:30 AVAPS 500, E PAP 8, I PAP 9-25, 95%, sats 90% 11/23 07:30 AVAPS 500, E PAP 8, I PAP 9-25, 95%, sats 89% 11/23 07:45 AVAPS 500, E PAP 12, I PAP 13-25, 100%, sats 91% (3) Pulmonary embolism: Qualifiers: Pulmonary embolism type: single subsegmental (without acute cor pulmonale) Qualified Code(s): I26.93 - Single subsegmental pulmonary embolism without acute cor pulmonale Code(s): I26.99 - Other pulmonary embolism without acute cor pulmonale Status: Acute Assessment and Plan: Patient with a PE right middle lobe provoked by COVID pneumonia. Patient is hemodynamically stable. BNP is 228, troponin is negative at less than 0.012. Echo with normal RV size and function, RA was not visualized, PASP 37. Agree with continued anticoagulation with Lovenox b.i.d.. 11/23 Overall this is a relatively low clot burden with no evidence of hemodynamic compromise or right heart strain. I suspect her worsening oxygenation is related to her COVID pneumonia rather than a pulmonary emboli and I will continue Lovenox 95 mg b.i.d. for now. Subjective Date/time seen: 11/23/21 07:39 Interval history: 11/22/2021: This is a new pulmonary consult for presumed COVID and hypoxemic respiratory failure. 76-year-old woman with a history of diabetes, hypertension, hyperlipidemia who has been exposed to her COVID positive daughter recently presented to the emergency department on 11/21/2020 with shortness of breath. Per the chart she had been sitting on her coat couch since 11/12 and covered in feces and urine when she was extricated from her house. On arrival to the emergency room she was in respiratory distress and hypoxemic. patient had hypoxemic res
--- NOTE | 2021-11-23 09:06 | PM.IMPN ---
Progress Note: A&P Assessment and Plan (1) Acute respiratory failure with hypoxia: Code(s): J96.01 - Acute respiratory failure with hypoxia Status: Acute Assessment and Plan: Patient on BiPAP with AVAPS mode with TV 500. SpO2 95% on 95%. Pulmonary managing NIV. CXR reviewed personally. Troponin negartive and BNP 228. Patient somnolent and tachypneic. Tiring out? Will check ABG. Appreciate pulmonary input. (2) Pulmonary embolism: Qualifiers: Pulmonary embolism type: single subsegmental (without acute cor pulmonale) Qualified Code(s): I26.93 - Single subsegmental pulmonary embolism without acute cor pulmonale Code(s): I26.99 - Other pulmonary embolism without acute cor pulmonale Status: Acute Assessment and Plan: Patient present with acute resp failure. DDimer 2.9 felt related to COVID but high risk for PE given the prolonged inactivity prior to admission. CTA chest showing RML PE and diffuse disease consistent with COVID PNA. Doppler of the LE negative for DVT. She remains on Lovenox therapeutic dosing. (3) Pneumonia due to COVID-19 virus: Onset Date: ~11/11/21 Code(s): U07.1 - COVID-19; J12.82 - Pneumonia due to coronavirus disease 2019 Status: Acute Assessment and Plan: Patient presents with acute hypoxic respiratory failure. CTA chest showing diffuse disease consistent with COVID PNA. She refuses COVID testing but this is the most likely cause of her symptoms. She has not been vaccinated against COVID. CRP 12.1 which is essentially unchanged. CXR reviewed showing slight improvement. BCx NGTD. She was agreeable to start steroids and she remains on Dexamethasone. She refused Remdesivir and baracitinib. Spoke with her yesterday about how her decisions could result in increase in morbidity and mortality and she voiced understanding of this. Continue Dexamethasone. Continue supportive care. Continue IV abx for now. (4) Dehydration: Code(s): E86.0 - Dehydration Status: Acute Assessment and Plan: Dehydrated on admission treated with IV fluids. Since she probably has COVID, IV fluids stopped. Consider TPN or NGT placement for TF if she remains BiPAP dependent for a prolonged period. (5) Transaminitis: Code(s): R74.01 - Elevation of levels of liver transaminase levels Status: Acute Assessment and Plan: LFTs mildly elevated felt related to COVID. Levels trending down. Follow (6) Essential (primary) hypertension: Code(s): I10 - Essential (primary) hypertension Status: Acute Assessment and Plan: Patient's blood pressure was reviewed on 11/23 Blood pressure mildly elevated at times. Will continue to monitor. Will hold lisinopril for now. (7) Controlled diabetes mellitus type II without complication: Code(s): E11.9 - Type 2 diabetes mellitus without complications Status: Acute Assessment and Plan: A1c 7.0. The patient's blood glucose was reviewed on 11/23 Glucose remains reasonably well controlled Continue AccuCheks covering with sliding scale. Hypoglycemia protocol available as needed. Continue current medications. Subjective Date/time seen: 11/23/21 09:06 Interval history: 76yo female with DM and HTN for fever, cough and shortness of breath. No CP. SOB about the same. Tolerating the NIV overnight and was able to sleep some. Still with cough that is worse with movement. Exam Narrative: AF 99.1 154/71 120 40 90% BiPAP Gen - BiPAP in place, very tachypneic Chest - bilateral diffuse inspiratory crackles worse in the left lower lung field CV - tachycardic, regular, S1/S2; Tele showing sinus tachycardia Abd - Soft, obese, NT Ext - trace pitting pedal edema Neuro - somnolent, answers questions appropriately. Skin - cool and dry Now with fevers to 101.3. Objective Data Vital Signs Vital Signs: Vital Signs - 24 hr 11/22/21 09:42 11/22/21 10:00
[2021-11-23] MEDS: ENOXAPARIN 100 MG/ML SYRINGE 95 MG SUB-Q ×2 (09:18→21:06)
[2021-11-23 10:50] LABS: Alveolar/Arterial O2 Gradient 612.2 mmHg; Base Excess ABG 2.2 mEq/l (+/-2.0); Fractional Inspired Oxygen 100 %; HCO3 ABG 24.7 mEq/l (22.0-26.0); Oxygen Content ABG 21.9 %vol (16.0-22.0); Oxygen Saturation ABG 95.1 % (95.0-100.0); Oxyhemoglobin 93.3 % THb (90.0-100.0); PCO2 ABG 32.7 mmHg (35.0-45.0); PO2 ABG 68.1 mmHg (80.0-100.0); PO2 FiO2 Ratio Arterial Blood 0.68 %; Total Hemoglobin 16.7 g/dL (12.0-18.0); pH ABG 7.496 (7.350-7.450)
[2021-11-23 10:51] LABS: Device NON-INVASIVE VENT; Modified Allen's Test Pass; Site Drawn LEFT RADIAL
[2021-11-23 10:52] LABS: Non-Invasive Vent Rate 20 /MIN
[2021-11-23 10:56] LABS: Non-Invasive Expiratory Pressure 12 CMH2O
--- NOTE | 2021-11-23 11:31 | PC.NURSE ---
Patient oriented x3. Spoke with patient regarding plan of care, and what patients wishes are if she deteriorates on bipap. Patient stated that she does not wish to be intubated. Advised Dr. Mccloud, he is aware.
[2021-11-23 12:46] LABS: Glucose Point of Care 234 mg/dl (65-105)
[2021-11-23 18:22] LABS: Glucose Point of Care 249 mg/dl (65-105)
[2021-11-23] MEDS: INSULIN ASPART (*BKC) 100 UNITS/ML SUB-Q (18:43)
[2021-11-24] VITALS (27 sets, daily range): BP systolic 115–158; BP diastolic 78–97; PULSE 88–132; RESP 4–38; TEMP 36.2–37.2; O2SAT 91–98
[2021-11-24 00:56] LABS: Glucose Point of Care 228 mg/dl (65-105)
[2021-11-24] MEDS: ALBUTEROL SULFATE NEB 2.5 MG/0.5 ML INH 5 MG INHALATION ×4 (03:07→20:08)
[2021-11-24] MEDS: IPRATROPIUM BR 0.02% INH SOLN 0.5 MG/2.5 ML VIAL INHALATION ×4 (03:08→20:08)
[2021-11-24 06:12] LABS: Hematocrit 41.5 % (37.0-47.0); Hemoglobin 14.1 g/dL (12.0-15.0); Mean Corpuscular Hemoglobin 32.3 pg (26-34); Mean Platelet Volume 10.9 fl (7.4-10.4); Platelet Count Result 332 k/mm3 (150-375); Red Blood Count 4.37 M/mm3 (4.2-5.4); Red Cell Distribution Width 13.3 % (11.5-14.5); White Blood Count 14.3 K/mm3 (4.5-10.0)
[2021-11-24 07:04] LABS: Alanine Aminotransferase 32 U/L (4-35); Albumin Level 2.7 g/dL (3.5-5.1); Alkaline Phosphatase 52 U/L (38-126); Anion Gap 6 mmol/L (8-16); Aspartate Amino Transferase 30 U/L (14-36); Bilirubin,Total 0.6 mg/dL (0.2-1.3); Blood Urea Nitrogen 25 mg/dL (7-17); CRP 13.4 mg/dL (<1.0); Calcium 8.9 mg/dL (8.4-10.2); Carbon Dioxide 29 mmol/L (22-30); Chloride 103 mmol/L (98-107); Estimated CRCL calculation 66 ml/min; Estimated Glomerular Filt Rate > 60; Glucose 202 mg/dL (65-110); Potassium 3.5 mmol/L (3.4-5.0); Sodium 138 mmol/L (137-145)
[2021-11-24] MEDS: ENOXAPARIN 100 MG/ML SYRINGE 95 MG SUB-Q ×2 (10:04→22:13)
--- NOTE | 2021-11-24 10:19 | PM.IMPN ---
Progress Note: A&P Assessment and Plan (1) Acute respiratory failure with hypoxia: Code(s): J96.01 - Acute respiratory failure with hypoxia Status: Acute Assessment and Plan: 11/24 remains BiPAP dependent (2) Pulmonary embolism: Qualifiers: Pulmonary embolism type: single subsegmental (without acute cor pulmonale) Qualified Code(s): I26.93 - Single subsegmental pulmonary embolism without acute cor pulmonale Code(s): I26.99 - Other pulmonary embolism without acute cor pulmonale Status: Acute Assessment and Plan: CTA chest showing RML PE and diffuse disease consistent with COVID PNA. Doppler of the LE negative for DVT. Continue therapeutic enoxaparin. (3) Pneumonia due to COVID-19 virus: Onset Date: ~11/11/21 Code(s): U07.1 - COVID-19; J12.82 - Pneumonia due to coronavirus disease 2018 Status: Acute Assessment and Plan: Remains on Dexamethasone Refused Remdesivir and baracitinib (she comprehended the implications for increased odds of morbidity, mortality) (4) Dehydration: Code(s): E86.0 - Dehydration Status: Acute Assessment and Plan: Consider TPN or NGT placement for TF if she remains BiPAP dependent for a prolonged period. (5) Transaminitis: Code(s): R74.01 - Elevation of levels of liver transaminase levels Status: Acute Assessment and Plan: LFTs mildly elevated felt related to COVID (6) Essential (primary) hypertension: Code(s): I10 - Essential (primary) hypertension Status: Acute Assessment and Plan: Patient's blood pressure was reviewed on 11/24 Continue to monitor while holding lisinopril (7) Controlled diabetes mellitus type II without complication: Code(s): E11.9 - Type 2 diabetes mellitus without complications Status: Acute Assessment and Plan: A1c 7.0. The patient's blood glucose was reviewed on 11/24 Glucose remains reasonably well controlled Continue AccuCheks covering with sliding scale and hypoglycemia protocol Subjective Date/time seen: 11/24/21 10:19 Interval history: Admitted for respiratory failure due to COVID-19 pneumonia. 11/24 visit: Still BiPAP dependent. Tolerating well. Poor appetite. He saturates when she tries to drink fluids. Denied pain. Short of breath with exertion. Review of Systems Review of Systems: All systems reviewed & are unremarkable except as noted in HPI and below Exam Narrative: Gen - BiPAP in place, tachypneic Chest -coarse breath sounds throughout with diminished at bases CV - regular, normal S1/S2; Abd -protuberant, bowel sounds positive, soft, nontender Ext -no cyanosis edema or clubbing Neuro -alert. Oriented to person place and time. Skin - cool and dry Objective Data Vital Signs Vital Signs: Vital Signs - 24 hr 11/23/21 12:00 11/23/21 13:35 11/23/21 14:00 Temperature 100.8 F H Pulse Rate 117 H 105 H Respiratory Rate 118 H 41 H Blood Pressure 141/79 H Pulse Oximetry 92 11/23/21 14:25 11/23/21 16:00 11/23/21 18:00 Temperature 98.9 F Pulse Rate 115 H 100 106 H Respiratory Rate 34 H 110 H Blood Pressure 135/87 Pulse Oximetry 95 98 11/23/21 20:00 11/23/21 21:38 11/23/21 21:39 Temperature 99.4 F Pulse Rate 105 H 104 H 104 H Respiratory Rate 37 H 37 H 37 H Blood Pressure 160/92 H Pulse Oximetry 94 94 11/23/21 22:00 11/24/21 00:00 11/24/21 00:35 Temperature 99 F Pulse Rate 114 H 108 H 102 H Respiratory Rate 34 H 33 H Blood Pressure 143/84 H Pulse Oximetry 98 93 11/24/21 01:39 11/24/21 03:40 11/24/21 04:00 Temperature Pulse Rate 108 H 108 H 107 H Respiratory Rate 36 H 34 H Blood Pressure Pulse Oximetry 93 98 11/24/21 04:25 11/24/21 04:34 11/24/21 05:36 Temperature 98.9 F 98.9 F Pulse Rate 111 H 111 H 108 H Respiratory Rate 4 L 34 H Blood Pressure 144/82 H Pulse Oximetry 98 11/24/21 07:5
[2021-11-24 12:41] LABS: Glucose Point of Care 211 mg/dl (65-105)
[2021-11-24] MEDS: INSULIN ASPART (*BKC) 100 UNITS/ML SUB-Q ×2 (12:57→17:19)
--- NOTE | 2021-11-24 13:35 | PM.PNPUL ---
Progress Note: A&P Assessment and Plan (1) Pneumonia due to COVID-19 virus: Onset Date: ~11/11/21 Code(s): U07.1 - COVID-19; J12.82 - Pneumonia due to coronavirus disease 2019 Status: Acute Assessment and Plan: 11/22 Patient exposed to a daughter who is COVID positive. Patient is unvaccinated and refuses to get tested for COVID as she does not recognize this disease. CT angiogram of the chest demonstrates a PE as well as bilateral patchy infiltrates characteristic of COVID pneumonia and I will treat her for COVID pneumonia. She is willing to take steroids but is unwilling to take remdesivir or any other medicines for COVID at this time. - Dexamethasone 6 mg IV for 10 days - Continuous pulse oximetry - Prone positioning as tolerated. - Avoid any fluid overload. - emperic azithromycin and ceftraixone for CAP started 11/21. - Albuterol inhaler Q 4 for now, no wheezes. - ABG 7.47/36/63 So no evidence of hypercarbic respiratory failure. - Will check influenza swab. She refused Keep saturations are 90-94% with Noninvasive ventilation with the AVAPS mode. Would increase EPAP for additional hypoxemia Patient is DNR. 11/23 patient remains on continuous noninvasive ventilation with the AVAPS mode. She is less communicative today she does arouse and talk when stimulated. She does follow simple commands. She was on the above AVAPS setting on 95% FIO2 with sats 89%. I increased the FiO2 to 100, increase the EPAP to 12 and she had increased leaks so I changed the rise to 3. Saturations 91%. Worsening oxygenation. Patient is DNR with RR 34 and is lethargic but appears comfortable on the nonivasive ventilation. 11/24 patient more awake today. She is remained on continuous noninvasive ventilation with the AVAPS mode the rate of 20, tidal volume 500, EPAP 12, high pressures 13-25 and 100% FiO2. Her saturations are currently 99%. She tells me the pressure was high and I decreased her to an EPAP of 10 inspiratory pressures 11-25 and 90% FiO2. her white blood cell count is 14.3, her CRP is very elevated at 13.4 creatinine is 0.7. Will follow with you. (2) Acute respiratory failure with hypoxia: Code(s): J96.01 - Acute respiratory failure with hypoxia Status: Acute Assessment and Plan: Etiology of hypoxic respiratory failure is likely COVID pneumonia. BNP is 228 but there is no evidence of fluid overload. Echo with EF 65-70, RV normal size and function, RA no visualized, PASP 37. 11/21 17:15 15 L NRB sats 88% 11/21 18:12 BiPAP 16, 12/5 100%, sats 92% 11/22 09:42 BiPAP 16, 12 100%, sats 92% 11/22 12:00 AVAPS 500, E PAP 8, I PAP 9-25, 100%, sats 96% 11/22 20:30 AVAPS 500, E PAP 8, I PAP 9-25, 95%, sats 90% 11/23 07:30 AVAPS 500, E PAP 8, I PAP 9-25, 95%, sats 89% 11/23 07:45 AVAPS 500, E PAP 12, I PAP 13-25, 100%, sats 91%, ABG later in the day was 7.50/33/68. 11/23 21:39 AVAPS 500, E PAP 12, I PAP 13-25, 100%, sats 97% 11/24 08:00 AVAPS 500, E PAP 12, I PAP 13-25, 100%, sats 99%, I changed her to AVAPS 500, E PAP 10, I PAP 11-25, 90% (3) Pulmonary embolism: Qualifiers: Pulmonary embolism type: single subsegmental (without acute cor pulmonale) Qualified Code(s): I26.93 - Single subsegmental pulmonary embolism without acute cor pulmonale Code(s): I26.99 - Other pulmonary embolism without acute cor pulmonale Status: Acute Assessment and Plan: Patient with a PE right middle lobe provoked by COVID pneumonia. Patient is hemodynamically stable. BNP is 228, troponin is negative at less than 0.012. Echo with normal RV size and function, RA was not visualized, PASP 37. Agree with continued anticoagulation with Lovenox b.i.d.. 11/23 Overall this is a relatively low clot burden with no evidence of hemodynamic compromise or right heart strain. I suspect her worsening oxygenation is related to her COVID pneumonia rather than a pulmonary emboli and I will continue Lovenox 95 mg b.i.d.
[2021-11-24] MEDS: METOPROLOL TARTRATE INJ 5 MG/5 ML VIAL IV PUSH ×2 (17:19→23:15)
[2021-11-24 17:20] LABS: Glucose Point of Care 236 mg/dl (65-105)
[2021-11-24 22:26] LABS: Glucose Point of Care 171 mg/dl (65-105)
[2021-11-25] VITALS (29 sets, daily range): BP systolic 147–180; BP diastolic 78–96; PULSE 88–125; RESP 22–36; TEMP 36.5–36.8; O2SAT 87–98
[2021-11-25] MEDS: ALBUTEROL SULFATE NEB 2.5 MG/0.5 ML INH 5 MG INHALATION (02:19)
[2021-11-25] MEDS: IPRATROPIUM BR 0.02% INH SOLN 0.5 MG/2.5 ML VIAL INHALATION ×3 (02:19→21:01)
[2021-11-25] MEDS: METOPROLOL TARTRATE INJ 5 MG/5 ML VIAL IV PUSH ×4 (06:36→23:17)
[2021-11-25 09:11] LABS: Hematocrit 43.4 % (37.0-47.0); Hemoglobin 14.5 g/dL (12.0-15.0); Mean Corpuscular HGB Conc 33.4 g/dl (32-36); Mean Corpuscular Hemoglobin 32.5 pg (26-34); Mean Corpuscular Volume 97.3 fl (80-100); Mean Platelet Volume 10.9 fl (7.4-10.4); Platelet Count Result 359 k/mm3 (150-375); Red Blood Count 4.46 M/mm3 (4.2-5.4); Red Cell Distribution Width 13.5 % (11.5-14.5); White Blood Count 13.6 K/mm3 (4.5-10.0)
[2021-11-25 09:31] LABS: Alanine Aminotransferase 31 U/L (4-35); Albumin Level 2.9 g/dL (3.5-5.1); Alkaline Phosphatase 55 U/L (38-126); Anion Gap 4 mmol/L (8-16); Aspartate Amino Transferase 30 U/L (14-36); Bilirubin,Total 0.5 mg/dL (0.2-1.3); Blood Urea Nitrogen 31 mg/dL (7-17); CRP 7.5 mg/dL (<1.0); Calcium 9.2 mg/dL (8.4-10.2); Carbon Dioxide 34 mmol/L (22-30); Chloride 104 mmol/L (98-107); Estimated CRCL calculation 76 ml/min; Estimated Glomerular Filt Rate > 60; Glucose 195 mg/dL (65-110); Sodium 142 mmol/L (137-145)
--- NOTE | 2021-11-25 09:43 | PM.IMPN ---
Progress Note: A&P Assessment and Plan (1) Acute respiratory failure with hypoxia: Code(s): J96.01 - Acute respiratory failure with hypoxia Status: Acute Assessment and Plan: 11/24 remains BiPAP dependent 11/25 Begin Clinidex and Lipids due to inability to eat and minimal fluid intake for the past few days Monitor I/O 11/25 D/w (2) Pulmonary embolism: Qualifiers: Pulmonary embolism type: single subsegmental (without acute cor pulmonale) Qualified Code(s): I26.93 - Single subsegmental pulmonary embolism without acute cor pulmonale Code(s): I26.99 - Other pulmonary embolism without acute cor pulmonale Status: Acute Assessment and Plan: CTA chest showing RML PE and diffuse disease consistent with COVID PNA. Doppler of the LE negative for DVT. Continue therapeutic enoxaparin. (3) Pneumonia due to COVID-19 virus: Onset Date: ~11/11/21 Code(s): U07.1 - COVID-19; J12.82 - Pneumonia due to coronavirus disease 2018 Status: Acute Assessment and Plan: Remains on Dexamethasone Refused Remdesivir and baracitinib (she comprehended the implications for increased odds of morbidity, mortality) (4) Dehydration: Code(s): E86.0 - Dehydration Status: Acute Assessment and Plan: Consider TPN or NGT placement for TF if she remains BiPAP dependent for a prolonged period. (5) Transaminitis: Code(s): R74.01 - Elevation of levels of liver transaminase levels Status: Acute Assessment and Plan: LFTs mildly elevated felt related to COVID (6) Essential (primary) hypertension: Code(s): I10 - Essential (primary) hypertension Status: Acute Assessment and Plan: Patient's blood pressure was reviewed on 11/24 Continue to monitor while holding lisinopril (7) Controlled diabetes mellitus type II without complication: Code(s): E11.9 - Type 2 diabetes mellitus without complications Status: Acute Assessment and Plan: A1c 7.0. The patient's blood glucose was reviewed on 11/25 Glucose remains reasonably well controlled Continue AccuCheks covering with sliding scale and hypoglycemia protocol Subjective Date/time seen: 11/25/21 09:43 Interval history: Admitted for respiratory failure due to COVID-19 pneumonia. 11/25 visit: Still BiPAP dependent. Tolerating well. Poor appetite. Desaturates when she tries to drink fluids. Denied pain. Short of breath with exertion. Exhausted. Hungry. Review of Systems Review of Systems: All systems reviewed & are unremarkable except as noted in HPI and below Exam Narrative: Gen - BiPAP in place, tachypneic Chest -coarse breath sounds throughout with diminished at bases CV - regular, normal S1/S2; Abd -protuberant, bowel sounds positive, soft, nontender Ext -no cyanosis edema or clubbing Neuro -alert. Oriented to person place and time. Skin - cool and dry Objective Data Vital Signs Vital Signs: Vital Signs - 24 hr 11/24/21 10:00 11/24/21 12:00 11/24/21 12:16 Temperature 98.4 F Pulse Rate 125 H 124 H 128 H Respiratory Rate 38 H 30 H Blood Pressure 148/84 H Pulse Oximetry 93 91 11/24/21 14:00 11/24/21 14:24 11/24/21 16:00 Temperature 97.8 F Pulse Rate 119 H 128 H 129 H Respiratory Rate 34 H 36 H Blood Pressure 158/97 H Pulse Oximetry 95 11/24/21 17:19 11/24/21 17:50 11/24/21 18:00 Temperature Pulse Rate 127 H 132 H 112 H Respiratory Rate 36 H Blood Pressure Pulse Oximetry 94 11/24/21 20:00 11/24/21 20:05 11/24/21 20:07 Temperature 97.8 F Pulse Rate 112 H 126 H 126 H Respiratory Rate 36 H 28 H 28 H Blood Pressure 144/82 H Pulse Oximetry 96 92 11/24/21 22:00 11/24/21 22:32 11/24/21 23:15 Temperature 98.1 F Pulse Rate 113 H 88 95 Respiratory Rate 32 H Blood Pressure 115/78 Pulse Oximetry 96 11/25/21 00:00 11/25/21 02:00 11/25/21 02:18 Temperatu
[2021-11-25] MEDS: ENOXAPARIN 100 MG/ML SYRINGE 95 MG SUB-Q ×2 (11:02→21:52)
--- NOTE | 2021-11-25 12:58 | PM.PNPUL ---
Progress Note: A&P Assessment and Plan (1) Pneumonia due to COVID-19 virus: Onset Date: ~11/11/21 Code(s): U07.1 - COVID-19; J12.82 - Pneumonia due to coronavirus disease 2019 Status: Acute Assessment and Plan: 11/22 Patient exposed to a daughter who is COVID positive. Patient is unvaccinated and refuses to get tested for COVID as she does not recognize this disease. CT angiogram of the chest demonstrates a PE as well as bilateral patchy infiltrates characteristic of COVID pneumonia and I will treat her for COVID pneumonia. She is willing to take steroids but is unwilling to take remdesivir or any other medicines for COVID at this time. - Dexamethasone 6 mg IV for 10 days - Continuous pulse oximetry - Prone positioning as tolerated. - Avoid any fluid overload. - emperic azithromycin and ceftraixone for CAP started 11/21. - Albuterol inhaler Q 4 for now, no wheezes. - ABG 7.47/36/63 So no evidence of hypercarbic respiratory failure. - Will check influenza swab. She refused Keep saturations are 90-94% with Noninvasive ventilation with the AVAPS mode. Would increase EPAP for additional hypoxemia Patient is DNR. 11/23 patient remains on continuous noninvasive ventilation with the AVAPS mode. She is less communicative today she does arouse and talk when stimulated. She does follow simple commands. She was on the above AVAPS setting on 95% FIO2 with sats 89%. I increased the FiO2 to 100, increase the EPAP to 12 and she had increased leaks so I changed the rise to 3. Saturations 91%. Worsening oxygenation. Patient is DNR with RR 34 and is lethargic but appears comfortable on the nonivasive ventilation. 11/24 patient more awake today. She is remained on continuous noninvasive ventilation with the AVAPS mode the rate of 20, tidal volume 500, EPAP 12, high pressures 13-25 and 100% FiO2. Her saturations are currently 99%. She tells me the pressure was high and I decreased her to an EPAP of 10 inspiratory pressures 11-25 and 90% FiO2. her white blood cell count is 14.3, her CRP is very elevated at 13.4 creatinine is 0.7. chest x-ray unchanged infiltrates. 11/25 Patient alert but weak. She is remained on continuous noninvasive ventilation with the AVAPS mode the rate of 20, tidal volume 500, EPAP 10, inspire pressures 11-25 and 80% FiO2. Her saturations are currently 91%. Her white blood cell count is 13.6, her CRP is high but improved at 7.5, creatinine is 0.6. she desaturation to the low 80s whenever her mask is removed so she has been unable to eat. Will start PPN today. Today is day 5 ceftriaxone and azithromycin. Will consider discontinuation on 11/26. Will follow with you. (2) Acute respiratory failure with hypoxia: Code(s): J96.01 - Acute respiratory failure with hypoxia Status: Acute Assessment and Plan: Etiology of hypoxic respiratory failure is likely COVID pneumonia. BNP is 228 but there is no evidence of fluid overload. Echo with EF 65-70, RV normal size and function, RA no visualized, PASP 37. 11/21 17:15 15 L NRB sats 88% 11/21 18:12 BiPAP 16, 12/5 100%, sats 92% 11/22 09:42 BiPAP 16, 12/5 100%, sats 92% 11/22 12:00 AVAPS 500, E PAP 8, I PAP 9-25, 100%, sats 96% 11/22 20:30 AVAPS 500, E PAP 8, I PAP 9-25, 95%, sats 90% 11/23 07:30 AVAPS 500, E PAP 8, I PAP 9-25, 95%, sats 89% 11/23 07:45 AVAPS 500, E PAP 12, I PAP 13-25, 100%, sats 91%, ABG later in the day was 7.50/33/68. 11/23 21:39 AVAPS 500, E PAP 12, I PAP 13-25, 100%, sats 97% 11/24 08:00 AVAPS 500, E PAP 12, I PAP 13-25, 100%, sats 99%, I changed her to AVAPS 500, E PAP 10, I PAP 11-25, 90% 11/24 20:00 AVAPS 500, E PAP 10, I PAP 11-25, 80%, sats 92% 11/25 08:15 AVAPS 500, E PAP 10, I PAP 11-25, 80%, sats 91% (3) Pulmonary embolism: Qualifiers: Pulmonary embolism type: single subsegmental (without acute cor pulmonale) Qualified Code(s): I26.93 - Single subsegmental pulmonary embolism without acute cor pulmonale
[2021-11-25 13:13] LABS: Glucose Point of Care 193 mg/dl (65-105)
[2021-11-25] MEDS: ALBUTEROL SULFATE NEB 2.5 MG/0.5 ML INH INHALATION ×2 (13:23→21:01)
[2021-11-25 13:26] LABS: Basophils Percent Auto 0.3 % (0.2-1.2); Hematocrit 44.9 % (37.0-47.0); Hemoglobin 14.6 g/dL (12.0-15.0); Immature Granulocyte Absolute 0.14 K/mm3 (0.00-0.031); Lymphocytes Absolute Auto 0.44 K/mm3 (0.9-3.2); Lymphocytes Percent Auto 3.2 % (18.3-44.2); Mean Corpuscular HGB Conc 32.5 g/dl (32-36); Mean Corpuscular Hemoglobin 31.9 pg (26-34); Mean Corpuscular Volume 98.2 fl (80-100); Mean Platelet Volume 10.5 fl (7.4-10.4); Monocytes Absolute Auto 0.4 K/mm3 (0.1-0.6); Monocytes Percent Auto 2.9 % (2.6-8.5); Neutrophils Absolute Auto 12.9 K/mm3 (1.3-6.7); Neutrophils Percent Auto 92.6 % (45.5-73.1); Platelet Count Result 337 k/mm3 (150-375); Red Blood Count 4.57 M/mm3 (4.2-5.4); Red Cell Distribution Width 13.6 % (11.5-14.5); White Blood Count 13.9 K/mm3 (4.5-10.0)
[2021-11-25 13:36] LABS: Alanine Aminotransferase 30 U/L (4-35); Alkaline Phosphatase 60 U/L (38-126); Anion Gap 6 mmol/L (8-16); Aspartate Amino Transferase 27 U/L (14-36); Bilirubin,Total 0.5 mg/dL (0.2-1.3); Blood Urea Nitrogen 30 mg/dL (7-17); Calcium 9.1 mg/dL (8.4-10.2); Carbon Dioxide 32 mmol/L (22-30); Chloride 105 mmol/L (98-107); Estimated CRCL calculation 66 ml/min; Estimated Glomerular Filt Rate > 60; Glucose 223 mg/dL (65-110); Magnesium 2.4 mg/dL (1.6-2.3); Potassium 3.8 mmol/L (3.4-5.0); Sodium 143 mmol/L (137-145)
[2021-11-25 13:39] LABS: Partial Thromboplastin Time 30.9 SECONDS (22.3-36.8)
[2021-11-25 13:43] LABS: Transferrin 108 mg/dL (206-381)
[2021-11-25] MEDS: AMINO ACIDS 4.25%/D5W/LYTES/CA 2,000 ML 80 ML IV CONT (14:07)
[2021-11-25] MEDS: FAT EMULSIONS IV 20% 250 ML 20.83 ML IVPB (14:08)
[2021-11-25 17:06] LABS: Glucose Point of Care 316 mg/dl (65-105)
[2021-11-25] MEDS: INSULIN ASPART (*BKC) 100 UNITS/ML SUB-Q (18:16)
[2021-11-25 21:41] LABS: Glucose Point of Care 269 mg/dl (65-105)
[2021-11-26] VITALS (30 sets, daily range): BP systolic 154–197; BP diastolic 70–99; PULSE 89–138; RESP 21–46; TEMP 36.1–37.8; O2SAT 88–94; BMI 32.5
[2021-11-26] MEDS: IPRATROPIUM BR 0.02% INH SOLN 0.5 MG/2.5 ML VIAL INHALATION ×4 (02:55→21:12)
[2021-11-26] MEDS: ALBUTEROL SULFATE NEB 2.5 MG/0.5 ML INH INHALATION ×4 (02:55→21:12)
[2021-11-26 05:04] LABS: Hematocrit 43.8 % (37.0-47.0); Hemoglobin 14.2 g/dL (12.0-15.0); Mean Corpuscular HGB Conc 32.4 g/dl (32-36); Mean Corpuscular Hemoglobin 32.3 pg (26-34); Mean Corpuscular Volume 99.5 fl (80-100); Mean Platelet Volume 10.7 fl (7.4-10.4); Platelet Count Result 330 k/mm3 (150-375); Red Cell Distribution Width 13.3 % (11.5-14.5); White Blood Count 11.9 K/mm3 (4.5-10.0)
[2021-11-26 05:06] LABS: Basophils Absolute Auto 0.1 K/mm3 (0.0-0.1); Basophils Percent Auto 0.4 % (0.2-1.2); Eosinophils Percent Auto 0.1 % (0-4.4); Hemoglobin 14.4 g/dL (12.0-15.0); Immature Granulocyte Absolute 0.21 K/mm3 (0.00-0.031); Immature Granulocyte Percent A 1.8 % (0-0.5); Lymphocytes Absolute Auto 0.65 K/mm3 (0.9-3.2); Lymphocytes Percent Auto 5.5 % (18.3-44.2); Mean Corpuscular Hemoglobin 31.3 pg (26-34); Mean Corpuscular Volume 97.8 fl (80-100); Mean Platelet Volume 10.6 fl (7.4-10.4); Monocytes Absolute Auto 0.5 K/mm3 (0.1-0.6); Monocytes Percent Auto 3.9 % (2.6-8.5); Neutrophils Absolute Auto 10.5 K/mm3 (1.3-6.7); Neutrophils Percent Auto 88.3 % (45.5-73.1); Platelet Count Result 347 k/mm3 (150-375); Red Cell Distribution Width 13.3 % (11.5-14.5); White Blood Count 11.9 K/mm3 (4.5-10.0)
[2021-11-26 05:20] LABS: Alanine Aminotransferase 27 U/L (4-35); Albumin Level 2.6 g/dL (3.5-5.1); Alkaline Phosphatase 59 U/L (38-126); Anion Gap 5 mmol/L (8-16); Aspartate Amino Transferase 27 U/L (14-36); Bilirubin,Total 0.5 mg/dL (0.2-1.3); Blood Urea Nitrogen 31 mg/dL (7-17); Calcium 9.2 mg/dL (8.4-10.2); Carbon Dioxide 31 mmol/L (22-30); Chloride 105 mmol/L (98-107); Estimated CRCL calculation 76 ml/min; Estimated Glomerular Filt Rate > 60; Glucose 271 mg/dL (65-110); Magnesium 2.4 mg/dL (1.6-2.3); Phosphorus 3.7 mg/dL (2.5-4.5); Potassium 4.2 mmol/L (3.4-5.0); Sodium 141 mmol/L (137-145)
[2021-11-26 05:27] LABS: Transferrin 119 mg/dL (206-381)
[2021-11-26 05:29] LABS: CRP 7.6 mg/dL (<1.0)
[2021-11-26 05:36] LABS: INR 1.2; Prothrombin Time 15.2 Seconds (11.1-14.7)
[2021-11-26] MEDS: METOPROLOL TARTRATE INJ 5 MG/5 ML VIAL IV PUSH ×4 (05:41→23:24)
[2021-11-26 08:39] LABS: Glucose Point of Care 261 mg/dl (65-105)
[2021-11-26] MEDS: INSULIN ASPART (*BKC) 100 UNITS/ML SUB-Q ×3 (11:07→18:28)
[2021-11-26] MEDS: ENOXAPARIN 100 MG/ML SYRINGE 95 MG SUB-Q ×2 (11:08→20:36)
--- NOTE | 2021-11-26 11:10 | PM.IMPN ---
Progress Note: A&P Assessment and Plan (1) Acute respiratory failure with hypoxia: Code(s): J96.01 - Acute respiratory failure with hypoxia Status: Acute Assessment and Plan: Patient on BiPAP with AVAPS mode. Pulmonary managing NIV. She is essentially bipap dependent now. Troponin negative and BNP 228. Patient awake and alert; tachypneic. She is hypoxic at 100% Fio2. She will tire out. She is a DNR. Appreciate pulmonary input. Will discuss with family about end of life care. Discussed with daughter. Hospital course and patient's current condition discussed. All questions answered. She will speak with other family members and let us know about when to proceed with comfort measures. (2) Pulmonary embolism: Qualifiers: Pulmonary embolism type: single subsegmental (without acute cor pulmonale) Qualified Code(s): I26.93 - Single subsegmental pulmonary embolism without acute cor pulmonale Code(s): I26.99 - Other pulmonary embolism without acute cor pulmonale Status: Acute Assessment and Plan: Patient present with acute resp failure. DDimer 2.9 felt related to COVID but high risk for PE given the prolonged inactivity prior to admission. CTA chest showing RML PE and diffuse disease consistent with COVID PNA. Doppler of the LE negative for DVT. She remains on Lovenox therapeutic dosing. (3) Pneumonia due to COVID-19 virus: Onset Date: ~11/11/21 Code(s): U07.1 - COVID-19; J12.82 - Pneumonia due to coronavirus disease 2019 Status: Acute Assessment and Plan: Patient presents with acute hypoxic respiratory failure. CTA chest showing diffuse disease consistent with COVID PNA. She refuses COVID testing but this is the most likely cause of her symptoms. She has not been vaccinated against COVID. CRP was 12.1 but better at 7.6. CXR 11/24 reviewed showing moderate amoutn of PNA. BCx NGTD. She was agreeable to start steroids and she remains on Dexamethasone. She refused Remdesivir and baracitinib. She remains on Azithro and Rocephin Day 6. Will stop Azithro. Continue Dexamethasone. Continue supportive care. Lasix once. (4) Dehydration: Code(s): E86.0 - Dehydration Status: Acute Assessment and Plan: Dehydrated on admission treated with IV fluids. Since she probably has COVID, IV fluids were stopped. Given that she has prolonged bipap use, TPN started for nutrition. Continue the same (5) Transaminitis: Code(s): R74.01 - Elevation of levels of liver transaminase levels Status: Acute Assessment and Plan: LFTs mildly elevated felt related to COVID. Levels normal now. Follow periodically (6) Essential (primary) hypertension: Code(s): I10 - Essential (primary) hypertension Status: Acute Assessment and Plan: Patient's blood pressure was reviewed on 11/26 Blood pressure elevated at times. Will continue to monitor. Continue to hold lisinopril for now. Continue IV metoprolol (7) Controlled diabetes mellitus type II without complication: Code(s): E11.9 - Type 2 diabetes mellitus without complications Status: Acute Assessment and Plan: A1c 7.0. The patient's blood glucose was reviewed on 11/26 Glucose remains poorly controlled Continue AccuCheks covering with sliding scale. Hypoglycemia protocol available as needed. Continue to monitor Subjective Date/time seen: 11/26/21 11:10 Interval history: 76yo female with DM and HTN for fever, cough and shortness of breath from probably COVID (patient refuses testing). She is unvaccinated. Resuming care. Chart reviewed. Patient is alert but nonverbal to questions. She tracks but does not respond verbally. She has remained bipap dependent since admission. She has significant drop in SpO2 when attempting to transition off of bipap. Review of Systems Review of Systems: ROS unobtainable: Yes unobtainable due to mental status Exam Narrative: T
[2021-11-26 12:44] LABS: Triglycerides 168 mg/dL (<150)
[2021-11-26] MEDS: FUROSEMIDE INJ 40 MG/4 ML VIAL 20 MG IV PUSH (12:48)
[2021-11-26 12:59] LABS: Glucose Point of Care 252 mg/dl (65-105)
[2021-11-26 17:56] LABS: Glucose Point of Care 258 mg/dl (65-105)
[2021-11-26] MEDS: FAT EMULSIONS IV 20% 250 ML 20.8 ML IVPB (18:24)
[2021-11-26] MEDS: AMINO ACIDS 4.25%/D5W/LYTES/CA 2,000 ML 80 ML IV CONT (18:25)
--- NOTE | 2021-11-26 19:46 | PM.PNPUL ---
Progress Note: A&P Assessment and Plan (1) Pneumonia due to COVID-19 virus: Onset Date: ~11/11/21 Code(s): U07.1 - COVID-19; J12.82 - Pneumonia due to coronavirus disease 2019 Status: Acute Assessment and Plan: 11/22 Patient exposed to a daughter who is COVID positive. Patient is unvaccinated and refuses to get tested for COVID as she does not recognize this disease. CT angiogram of the chest demonstrates a PE as well as bilateral patchy infiltrates characteristic of COVID pneumonia and I will treat her for COVID pneumonia. She is willing to take steroids but is unwilling to take remdesivir or any other medicines for COVID at this time. - Dexamethasone 6 mg IV for 10 days - Continuous pulse oximetry - Prone positioning as tolerated. - Avoid any fluid overload. - emperic azithromycin and ceftraixone for CAP started 11/21. - Albuterol inhaler Q 4 for now, no wheezes. - ABG 7.47/36/63 So no evidence of hypercarbic respiratory failure. - Will check influenza swab. She refused Keep saturations are 90-94% with Noninvasive ventilation with the AVAPS mode. Would increase EPAP for additional hypoxemia Patient is DNR. 11/23 patient remains on continuous noninvasive ventilation with the AVAPS mode. She is less communicative today she does arouse and talk when stimulated. She does follow simple commands. She was on the above AVAPS setting on 95% FIO2 with sats 89%. I increased the FiO2 to 100, increase the EPAP to 12 and she had increased leaks so I changed the rise to 3. Saturations 91%. Worsening oxygenation. Patient is DNR with RR 34 and is lethargic but appears comfortable on the nonivasive ventilation. 11/24 patient more awake today. She is remained on continuous noninvasive ventilation with the AVAPS mode the rate of 20, tidal volume 500, EPAP 12, high pressures 13-25 and 100% FiO2. Her saturations are currently 99%. She tells me the pressure was high and I decreased her to an EPAP of 10 inspiratory pressures 11-25 and 90% FiO2. her white blood cell count is 14.3, her CRP is very elevated at 13.4 creatinine is 0.7. chest x-ray unchanged infiltrates. 11/25 Patient alert but weak. She is remained on continuous noninvasive ventilation with the AVAPS mode the rate of 20, tidal volume 500, EPAP 10, inspire pressures 11-25 and 80% FiO2. Her saturations are currently 91%. Her white blood cell count is 13.6, her CRP is high but improved at 7.5, creatinine is 0.6. she desaturation to the low 80s whenever her mask is removed so she has been unable to eat. Will start PPN today. Today is day 5 ceftriaxone and azithromycin. Will consider discontinuation on 11/26. 11/26 Worsening oxygenation and increased heart rate. I reviewed Dr Mccloud's note and I agree with the plans to change code status. She is deteriorating. I will sign off. Recall if needed. (2) Acute respiratory failure with hypoxia: Code(s): J96.01 - Acute respiratory failure with hypoxia Status: Acute Assessment and Plan: Etiology of hypoxic respiratory failure is likely COVID pneumonia. BNP is 228 but there is no evidence of fluid overload. Echo with EF 65-70, RV normal size and function, RA no visualized, PASP 37. 11/21 17:15 15 L NRB sats 88% 11/21 18:12 BiPAP 16, 12/5 100%, sats 92% 11/22 09:42 BiPAP 16, 12/5 100%, sats 92% 11/22 12:00 AVAPS 500, E PAP 8, I PAP 9-25, 100%, sats 96% 11/22 20:30 AVAPS 500, E PAP 8, I PAP 9-25, 95%, sats 90% 11/23 07:30 AVAPS 500, E PAP 8, I PAP 9-25, 95%, sats 89% 11/23 07:45 AVAPS 500, E PAP 12, I PAP 13-25, 100%, sats 91%, ABG later in the day was 7.50/33/68. 11/23 21:39 AVAPS 500, E PAP 12, I PAP 13-25, 100%, sats 97% 11/24 08:00 AVAPS 500, E PAP 12, I PAP 13-25, 100%, sats 99%, I changed her to AVAPS 500, E PAP 10, I PAP 11-25, 90% 11/24 20:00 AVAPS 500, E PAP 10, I PAP 11-25, 80%, sats 92% 11/25 08:15 AVAPS 500, E PAP 10, I PAP 11-25, 80%, sats 91% (3) Pulmonary embolism: Qualifiers: Pulmon
[2021-11-26 21:13] LABS: Glucose Point of Care 293 mg/dl (65-105)
[2021-11-27] VITALS (27 sets, daily range): BP systolic 150–178; BP diastolic 89–110; PULSE 91–139; RESP 30–37; TEMP 36.2–37.3; O2SAT 86–94
[2021-11-27] MEDS: IPRATROPIUM BR 0.02% INH SOLN 0.5 MG/2.5 ML VIAL INHALATION ×4 (02:08→22:22)
[2021-11-27] MEDS: ALBUTEROL SULFATE NEB 2.5 MG/0.5 ML INH INHALATION ×2 (02:08→10:49)
[2021-11-27 05:05] LABS: Anion Gap 6 mmol/L (8-16); Blood Urea Nitrogen 31 mg/dL (7-17); Calcium 9.3 mg/dL (8.4-10.2); Carbon Dioxide 30 mmol/L (22-30); Chloride 106 mmol/L (98-107); Estimated CRCL calculation 66 ml/min; Estimated Glomerular Filt Rate > 60; Glucose 311 mg/dL (65-110); Phosphorus 3.7 mg/dL (2.5-4.5); Sodium 142 mmol/L (137-145)
[2021-11-27] MEDS: METOPROLOL TARTRATE INJ 5 MG/5 ML VIAL IV PUSH ×3 (05:33→23:22)
[2021-11-27 08:43] LABS: Glucose Point of Care 269 mg/dl (65-105)
[2021-11-27] MEDS: ENOXAPARIN 100 MG/ML SYRINGE 95 MG SUB-Q ×2 (10:10→21:34)
[2021-11-27] MEDS: INSULIN ASPART (*BKC) 100 UNITS/ML SUB-Q ×3 (10:11→18:13)
--- NOTE | 2021-11-27 11:13 | PCNFU ---
Nutrition Follow-Up Complete: Inadequate oral intake related to pneumonia as evidenced by intolerance of BiPAP breaks goal: Meet nutritional needs Patient having limited progress towards goal. We will continue current goal. Pt current nutrition is DBCC with Clinimix E 4.25/5 at 80 ml/hr with 250 ml of 20% Lipid Emulsion. Last recorded weight is 88.6 kg-no new weight to report. Bowel Motility:+BM reported 11/25 Labs Reviewed:Glu 311, BUN 31 Meds Noted:Clinimix E 4.25/5 at 80 ml/hr with 250 ml of 20% Lipid Emulsion, Rocephin, Decadron, Lopressor, Novolog, Atrovent, Lovenox. Skin: bilateral buttock-maceration. Additional Notes: Patient remains on continuous Bypap. Unable to eat orally. Current on PPN providing 1153 kcals/82 gms protein. Current PPN is 69% of caloric needs and 100% of protein needs. Agree with diet orders at this time. Monitoring: Will monitor labs, medication, and wt every T/F
--- NOTE | 2021-11-27 11:22 | PM.IMPN ---
Progress Note: A&P Assessment and Plan (1) Acute respiratory failure with hypoxia: Code(s): J96.01 - Acute respiratory failure with hypoxia Status: Acute Assessment and Plan: Patient on BiPAP with AVAPS mode. Troponin negative and BNP 228. Patient awake and alert; tachypneic. She is hypoxic on 100% FiO2. She is a DNR. Pulmonary managing NIV. She is essentially bipap dependent now. Appreciate pulmonary input. Spoke with daughter yesterday and hospital course and patient's current condition discussed. All questions answered. Continue current care plan. Comfort measures if she starts to deteriorate further. (2) Pulmonary embolism: Qualifiers: Pulmonary embolism type: single subsegmental (without acute cor pulmonale) Qualified Code(s): I26.93 - Single subsegmental pulmonary embolism without acute cor pulmonale Code(s): I26.99 - Other pulmonary embolism without acute cor pulmonale Status: Acute Assessment and Plan: Patient present with acute resp failure. DDimer 2.9 felt related to COVID but high risk for PE given the prolonged inactivity prior to admission. CTA chest 11/21 showing RML PE and diffuse disease consistent with COVID PNA. Doppler of the LE negative for DVT. She remains on Lovenox therapeutic dosing. (3) Pneumonia due to COVID-19 virus: Onset Date: ~11/11/21 Code(s): U07.1 - COVID-19; J12.82 - Pneumonia due to coronavirus disease 2019 Status: Acute Assessment and Plan: Patient presents with acute hypoxic respiratory failure. CTA chest showing diffuse disease consistent with COVID PNA. She refuses COVID testing but this is the most likely cause of her symptoms. She has not been vaccinated against COVID. CRP was 12.1 but better at 7.6. CXR 11/24 reviewed showing moderate amount of airspace disease. BCx NGTD. She was agreeable to start steroids and she remains on Dexamethasone. She refused Remdesivir and baracitinib. She remains on Rocephin Day 7 (She completed a course of Azithro). Lasix with no significant benefit. Continue Dexamethasone. Continue supportive care. (4) Dehydration: Code(s): E86.0 - Dehydration Status: Acute Assessment and Plan: Dehydrated on admission treated with IV fluids. Since she probably has COVID, IV fluids were stopped. Given that she has prolonged bipap use, TPN started for nutrition. Continue the same. (5) Transaminitis: Code(s): R74.01 - Elevation of levels of liver transaminase levels Status: Acute Assessment and Plan: LFTs mildly elevated felt related to COVID. Levels normal now. Follow periodically (6) Essential (primary) hypertension: Code(s): I10 - Essential (primary) hypertension Status: Acute Assessment and Plan: Patient's blood pressure was reviewed on 11/27 Blood pressure elevated consistently. Currently on IV metoprolol. Will continue to monitor. Continue IV metoprolol. Add norvasc with sips. (7) Controlled diabetes mellitus type II without complication: Code(s): E11.9 - Type 2 diabetes mellitus without complications Status: Acute Assessment and Plan: A1c 7.0. The patient's blood glucose was reviewed on 11/27 Glucose remains poorly controlled related to steroids and TPN. Continue AccuCheks covering with sliding scale. Hypoglycemia protocol available as needed. Continue to monitor. Add lantus. Subjective Date/time seen: 11/27/21 11:22 Interval history: 76yo female with DM and HTN for fever, cough and shortness of breath from probably COVID (patient refuses testing). She is unvaccinated. Patient still not willing to talk but puts her thumb up when asked if she was feeling better. She hakes her head no when asked about chest pain and abdominal pain. Review of Systems Review of Systems: ROS unobtainable: Yes unobtainable due to mental status (limited) Exam Narrative: AF 98.3 150/107 104 30 89% bipap Fio2 100% Ge
[2021-11-27 13:08] LABS: Glucose Point of Care 276 mg/dl (65-105)
[2021-11-27] MEDS: AMINO ACIDS 4.25%/D5W/LYTES/CA 2,000 ML 80 ML IV CONT (16:30)
[2021-11-27] MEDS: FAT EMULSIONS IV 20% 250 ML 20.8 ML IVPB (16:30)
[2021-11-27] MEDS: INSULIN GLARGINE (*BKC) 100 UNITS/ML 10 UNITS SUB-Q (16:48)
[2021-11-27 16:58] LABS: Glucose Point of Care 356 mg/dl (65-105)
[2021-11-27 21:18] LABS: Glucose Point of Care 349 mg/dl (65-105)
[2021-11-28] VITALS (27 sets, daily range): BP systolic 150–182; BP diastolic 98–129; PULSE 94–133; RESP 26–42; TEMP 36.2–37.3; O2SAT 87–92
[2021-11-28] MEDS: IPRATROPIUM BR 0.02% INH SOLN 0.5 MG/2.5 ML VIAL INHALATION ×4 (02:26→21:41)
[2021-11-28] MEDS: METOPROLOL TARTRATE INJ 5 MG/5 ML VIAL IV PUSH ×4 (05:23→23:09)
[2021-11-28 06:09] LABS: Anion Gap 7 mmol/L (8-16); Blood Urea Nitrogen 29 mg/dL (7-17); CRP 7.1 mg/dL (<1.0); Calcium 9.5 mg/dL (8.4-10.2); Carbon Dioxide 29 mmol/L (22-30); Chloride 108 mmol/L (98-107); Estimated CRCL calculation 75 ml/min; Estimated Glomerular Filt Rate > 60; Glucose 283 mg/dL (65-110); Phosphorus 3.4 mg/dL (2.5-4.5); Potassium 4.1 mmol/L (3.4-5.0); Sodium 144 mmol/L (137-145)
[2021-11-28] MEDS: INSULIN ASPART (*BKC) 100 UNITS/ML SUB-Q ×3 (09:06→18:29)
[2021-11-28] MEDS: ENOXAPARIN 100 MG/ML SYRINGE 95 MG SUB-Q ×2 (09:06→21:23)
[2021-11-28 09:11] LABS: Glucose Point of Care 266 mg/dl (65-105)
--- NOTE | 2021-11-28 09:35 | PM.IMPN ---
Progress Note: A&P Assessment and Plan (1) Acute respiratory failure with hypoxia: Code(s): J96.01 - Acute respiratory failure with hypoxia Status: Acute Assessment and Plan: Patient on BiPAP with AVAPS mode. Troponin negative and BNP 228. Patient awake and alert; tachypneic. She is on 100% FiO2 but hypoxia is better. She is a DNR. Pulmonary managing NIV. She is essentially bipap dependent now. Appreciate pulmonary input. Continue current care plan. Comfort measures if she starts to deteriorate. (2) Pulmonary embolism: Qualifiers: Pulmonary embolism type: single subsegmental (without acute cor pulmonale) Qualified Code(s): I26.93 - Single subsegmental pulmonary embolism without acute cor pulmonale Code(s): I26.99 - Other pulmonary embolism without acute cor pulmonale Status: Acute Assessment and Plan: Patient present with acute resp failure. DDimer 2.9 felt related to COVID but high risk for PE given the prolonged inactivity prior to admission. CTA chest 11/21 showing RML PE and diffuse disease consistent with COVID PNA. Doppler of the LE negative for DVT. She remains on Lovenox therapeutic dosing. Change to oral route when able (3) Pneumonia due to COVID-19 virus: Onset Date: ~11/11/21 Code(s): U07.1 - COVID-19; J12.82 - Pneumonia due to coronavirus disease 2018 Status: Acute Assessment and Plan: Patient presents with acute hypoxic respiratory failure. CTA chest showing diffuse disease consistent with COVID PNA. She refuses COVID testing but this is the most likely cause of her symptoms. She has not been vaccinated against COVID. She was agreeable to start steroids and she remains on Dexamethasone. She refused Remdesivir and baracitinib. She remains on Rocephin Day 7 (She completed a course of Azithro). CRP was 12.1 but better at 7.1. CXR today reviewed showing diffuse bilateral pulmonary infiltrates with greater prominence in the lower lung zones including bilateral lower lobe air bronchograms as well as congestive changes, increased since 11/24/2021. BCx NGTD. Lasix given with no significant benefit. Continue Dexamethasone. Will stop Rocephin and resume IV Lasix to see if this will improve her respiratory symptoms. Continue supportive care. (4) Dehydration: Code(s): E86.0 - Dehydration Status: Acute Assessment and Plan: Dehydrated on admission treated with IV fluids. Since she probably has COVID, IV fluids were stopped. Given that she has prolonged bipap use, TPN started for nutrition. Continue the same. (5) Transaminitis: Code(s): R74.01 - Elevation of levels of liver transaminase levels Status: Acute Assessment and Plan: LFTs mildly elevated felt related to COVID. Levels normal now. Follow periodically (6) Essential (primary) hypertension: Code(s): I10 - Essential (primary) hypertension Status: Acute Assessment and Plan: Patient's blood pressure was reviewed on 11/28 Blood pressure remains elevated consistently. Currently on IV metoprolol. Will continue to monitor. Continue IV metoprolol. Hydralazine prn added. Will evaluate her jaw once able to have AirVo at bedside - probably would not tolerate being off the bipap. (7) Controlled diabetes mellitus type II without complication: Code(s): E11.9 - Type 2 diabetes mellitus without complications Status: Acute Assessment and Plan: A1c 7.0. The patient's blood glucose was reviewed on 11/28 Glucose better but still remains poorly controlled related to steroids and TPN. Continue AccuCheks covering with sliding scale. Hypoglycemia protocol available as needed. Continue to monitor. Advance lantus. Subjective Date/time seen: 11/28/21 09:35 Interval history: 76yo female with DM and HTN for fever, cough and shortness of breath from probably COVID (patient refuses testing). She is unvaccinated. Patient is awake but does not
[2021-11-28] MEDS: INSULIN GLARGINE (*BKC) 100 UNITS/ML 15 UNITS SUB-Q (12:03)
[2021-11-28] MEDS: FUROSEMIDE INJ 40 MG/4 ML VIAL IV PUSH ×2 (12:04→18:28)
[2021-11-28 13:27] LABS: Triglycerides 207 mg/dL (<150)
[2021-11-28 17:35] LABS: Glucose Point of Care 308 mg/dl (65-105)
[2021-11-28 17:52] LABS: Glucose Point of Care 337 mg/dl (65-105)
[2021-11-28] MEDS: FAT EMULSIONS IV 20% 250 ML 20.8 ML IVPB (18:29)
[2021-11-28] MEDS: AMINO ACIDS 4.25%/D5W/LYTES/CA 2,000 ML 80 ML IV CONT (18:30)
[2021-11-28 22:44] LABS: Glucose Point of Care 300 mg/dl (65-105)
[2021-11-29] VITALS (29 sets, daily range): BP systolic 123–162; BP diastolic 81–99; PULSE 100–142; RESP 29–45; TEMP 36–36.8; O2SAT 80–89
[2021-11-29] MEDS: IPRATROPIUM BR 0.02% INH SOLN 0.5 MG/2.5 ML VIAL INHALATION ×4 (03:15→20:50)
[2021-11-29 05:47] LABS: Alanine Aminotransferase 46 U/L (4-35); Albumin Level 3.4 g/dL (3.5-5.1); Alkaline Phosphatase 80 U/L (38-126); Anion Gap 10 mmol/L (8-16); Aspartate Amino Transferase 38 U/L (14-36); Bilirubin,Total 0.8 mg/dL (0.2-1.3); Blood Urea Nitrogen 41 mg/dL (7-17); Calcium 9.7 mg/dL (8.4-10.2); Carbon Dioxide 29 mmol/L (22-30); Chloride 103 mmol/L (98-107); Estimated CRCL calculation 65 ml/min; Estimated Glomerular Filt Rate > 60; Glucose 333 mg/dL (65-110); Magnesium 2.4 mg/dL (1.6-2.3); Phosphorus 4.7 mg/dL (2.5-4.5); Potassium 4.1 mmol/L (3.4-5.0); Sodium 142 mmol/L (137-145)
[2021-11-29] MEDS: METOPROLOL TARTRATE INJ 5 MG/5 ML VIAL IV PUSH ×4 (05:47→23:15)
[2021-11-29 05:49] LABS: Basophils Absolute Auto 0.1 K/mm3 (0.0-0.1); Basophils Percent Auto 0.6 % (0.2-1.2); Eosinophils Percent Auto 0.2 % (0-4.4); Hematocrit 47.9 % (37.0-47.0); Hemoglobin 15.5 g/dL (12.0-15.0); Immature Granulocyte Absolute 0.58 K/mm3 (0.00-0.031); Immature Granulocyte Percent A 3.2 % (0-0.5); Lymphocytes Absolute Auto 0.85 K/mm3 (0.9-3.2); Lymphocytes Percent Auto 4.7 % (18.3-44.2); Mean Corpuscular HGB Conc 32.4 g/dl (32-36); Mean Corpuscular Hemoglobin 32.1 pg (26-34); Mean Corpuscular Volume 99.2 fl (80-100); Mean Platelet Volume 11.6 fl (7.4-10.4); Monocytes Absolute Auto 0.5 K/mm3 (0.1-0.6); Neutrophils Absolute Auto 15.9 K/mm3 (1.3-6.7); Neutrophils Percent Auto 88.3 % (45.5-73.1); Platelet Count Result 312 k/mm3 (150-375); Red Blood Count 4.83 M/mm3 (4.2-5.4); Red Cell Distribution Width 13.4 % (11.5-14.5)
[2021-11-29 08:47] LABS: Glucose Point of Care 286 mg/dl (65-105)
[2021-11-29] MEDS: FUROSEMIDE INJ 40 MG/4 ML VIAL IV PUSH (09:27)
[2021-11-29] MEDS: ENOXAPARIN 100 MG/ML SYRINGE 95 MG SUB-Q ×2 (09:27→22:41)
[2021-11-29] MEDS: INSULIN ASPART (*BKC) 100 UNITS/ML SUB-Q ×3 (09:27→18:05)
--- NOTE | 2021-11-29 12:13 | PM.IMPN ---
Progress Note: A&P Assessment and Plan (1) Acute respiratory failure with hypoxia: Code(s): J96.01 - Acute respiratory failure with hypoxia Status: Acute Assessment and Plan: Patient on BiPAP with AVAPS mode. Troponin negative and BNP 228. Patient awake and alert; tachypneic. She is on 100% FiO2 with worsening hypoxia. She is a DNR. Pulmonary managing NIV. She is essentially bipap dependent now. Family has been made aware of the severity of her condition. Appreciate pulmonary input. Continue current care plan. Comfort measures if she starts to deteriorate. (2) Pulmonary embolism: Qualifiers: Pulmonary embolism type: single subsegmental (without acute cor pulmonale) Qualified Code(s): I26.93 - Single subsegmental pulmonary embolism without acute cor pulmonale Code(s): I26.99 - Other pulmonary embolism without acute cor pulmonale Status: Acute Assessment and Plan: Patient present with acute resp failure. DDimer 2.9 felt related to COVID but high risk for PE given the prolonged inactivity prior to admission. CTA chest 11/21 showing RML PE and diffuse disease consistent with COVID PNA. Doppler of the LE negative for DVT. She remains on Lovenox therapeutic dosing. Change to oral route when able (3) Pneumonia due to COVID-19 virus: Onset Date: ~11/11/21 Code(s): U07.1 - COVID-19; J12.82 - Pneumonia due to coronavirus disease 2018 Status: Acute Assessment and Plan: Patient presents with acute hypoxic respiratory failure. CTA chest showing diffuse disease consistent with COVID PNA. She refuses COVID testing but this is the most likely cause of her symptoms. She has not been vaccinated against COVID. She was agreeable to start steroids and she remains on Dexamethasone. She refused Remdesivir and baracitinib. She completed Rocephin and Azithro. CRP was 12.1 but better at 7.1. WBC was down to 12K but up to 18K now since being off the abx. CXR yesterday reviewed showing diffuse bilateral pulmonary infiltrates with greater prominence in the lower lung zones including bilateral lower lobe air bronchograms as well as congestive changes, increased since 11/24/2021. BCx NGTD. Lasix was given with no significant benefit but added back yesterday due to the CXR findings. Continue Dexamethasone. Will hold IV Lasix since not improving her respiratory symptoms and Hgb now 15. Continue supportive care. Repeat CXR in the morning. Monitor WBC and watch for fever. May need to resume abx. (4) Dehydration: Code(s): E86.0 - Dehydration Status: Acute Assessment and Plan: Dehydrated on admission treated with IV fluids. Since she probably has COVID, IV fluids were stopped. Given that she has prolonged bipap use, TPN started for nutrition. Continue the same. (5) Transaminitis: Code(s): R74.01 - Elevation of levels of liver transaminase levels Status: Acute Assessment and Plan: LFTs mildly elevated felt related to COVID. Levels mildly elevated now possibly related to the TPN. Follow periodically (6) Essential (primary) hypertension: Code(s): I10 - Essential (primary) hypertension Status: Acute Assessment and Plan: Patient's blood pressure was reviewed on 11/29 Blood pressure remains elevated but better overall. Currently on IV metoprolol. Will continue to monitor. Continue IV metoprolol. Hydralazine available prn (7) Controlled diabetes mellitus type II without complication: Code(s): E11.9 - Type 2 diabetes mellitus without complications Status: Acute Assessment and Plan: A1c 7.0. The patient's blood glucose was reviewed on 11/29 Glucose better but still remains poorly controlled related to steroids and TPN. Continue AccuCheks covering with sliding scale. Hypoglycemia protocol available as needed. Continue to monitor. Continue to advance Lantus. Subjective Date/time seen: 11/29/21 12:13 Interval history: 7
[2021-11-29 12:41] LABS: Glucose Point of Care 266 mg/dl (65-105)
[2021-11-29] MEDS: INSULIN GLARGINE (*BKC) 100 UNITS/ML 20 UNITS SUB-Q (13:25)
[2021-11-29] MEDS: FAT EMULSIONS IV 20% 250 ML 20.8 ML IVPB (13:26)
[2021-11-29] MEDS: AMINO ACIDS 4.25%/D5W/LYTES/CA 2,000 ML 80 ML IV CONT (14:51)
--- NOTE | 2021-11-29 16:00 | PC.NURSE ---
Dr. Mccloud notified of patient oxygen sats dropping into the upper 70's/low 80's. RN unable to get O2 sats above 80-83% the last 30-45 minutes. Pt's oxygen sat will drop as low as 74, but will rebound to low 80's. Pt at highest FiO2 level on BiPAP settings with FiO2 at 100% since admission. Will continue to monitor
[2021-11-29 16:47] LABS: Glucose Point of Care 228 mg/dl (65-105)
[2021-11-29] MEDS: LORazepam INJ (*CRX) 2 MG/ML VIAL 0.25 MG IV PUSH (23:15)
[2021-11-29 23:22] LABS: Glucose Point of Care 112 mg/dl (65-105)
[2021-11-30] VITALS (8 sets, daily range): BP systolic 140–147; BP diastolic 105–109; PULSE 112–159; RESP 33–54; TEMP 36.5; O2SAT 80–91
[2021-11-30] MEDS: IPRATROPIUM BR 0.02% INH SOLN 0.5 MG/2.5 ML VIAL INHALATION (02:10)
[2021-11-30] MEDS: MORPHINE SULFATE (*CRX) 2 MG/ML INJ IV PUSH (03:40)
[2021-11-30] MEDS: dilTIAZem HCl INJ 25 MG/5 ML VIAL 20 MG IV PUSH (04:06)
--- NOTE | 2021-11-30 05:02 | PC.NURSE ---
Spoke with daughters regarding comfort care and patient decline. Agreeable to comfort measures only. MD notified.
[2021-11-30] MEDS: MORPHINE SULFATE INJ (*CRX) 50 MG in SODIUM CHLORIDE 0.9% IV 95 ML IV CONT (05:29)
[2021-11-30] MEDS: LORazepam INJ (*CRX) 2 MG/ML VIAL IV PUSH ×2 (05:29→08:30)
--- NOTE | 2021-11-30 11:39 | PM.DDS ---
Discharge Summary Date and Time Date of : 11/30/21 Time of : 08:45 Provider Pronounced By: Evon Watters RN and Meera Meade RN Probable Cause of Probable Cause of : Acute respiratory failure and COVID Summary Hospital Course: Patient presents with acute hypoxic respiratory failure. DDimer 2.9 felt related to COVID but high risk for PE given the prolonged inactivity prior to admission. CTA chest 11/21 showing RML PE and diffuse disease consistent with COVID PNA. Doppler of the LE negative for DVT. She was treated with Lovenox therapeutic dosing. She refused COVID testing but this is the most likely cause of her symptoms. She has not been vaccinated against COVID. She was agreeable to start Dexamethasone but refused Remdesivir and baracitinib. She completed a course of Rocephin and Azithro. CRP was 12.1. Patient was put on BiPAP with AVAPS mode. Troponin negative and BNP 228. She required 100% FiO2 with worsening hypoxia. She was a DNR. Pulmonary managing NIV. She became bipap dependent. Family was made aware of the severity of her condition. She slowly deteriorated. She was asked multiple times if she would reconsider intubation but she continued to refuse. Her condition worsened. She became more hypoxic despite 100% FiO2 and BiPAP adjustments. Family made a okeefe and comfort measures started. She on 11/30/21 with family at bedside. Additional Data Confirmation of as documented by pronouncing clinician: Pupillary Reflex, Palpable Pulses, Response to Stimuli, Heart Tones and Breath Sounds Name of Provider Notified: Dr. Mccloud Time Provider Notified: 08:45 Provider Requests Autopsy: No Family Requests Autopsy: No Client Relation Specialist Notified: Yes Date [facility] Notified of : 11/30/21 Time [facility] Notified of : 08:55
== END 2021-11-30 08:45 | disposition expired | DRG 177 ==
LOC: ANHED 21:07 → ANHIMU 11-22 04:33
PROVIDERS: Internal Medicine; Internal Medicine Pulmonary Disease; Admitting Provider Internal Medicine; Emergency Provider Emergency Medicine; PCP Family Medicine; Visit Provider Internal Medicine
DX: U07.1 COVID-19 (principal); J12.82 Pneumonia due to coronavirus disease 2019; J96.01 Acute respiratory failure with hypoxia; I26.99 Other pulmonary embolism without acute cor pulmonale; B18.1 Chronic viral hepatitis B without delta-agent; E86.0 Dehydration; I10 Essential (primary) hypertension; E11.9 Type 2 diabetes mellitus without complications; Z53.29 Procedure and treatment not carried out because of patient's decision for other reasons; E66.9 Obesity, unspecified; D51.9 Vitamin B12 deficiency anemia, unspecified; E55.9 Vitamin D deficiency, unspecified; K21.9 Gastro-esophageal reflux disease without esophagitis; F41.9 Anxiety disorder, unspecified; M79.7 Fibromyalgia; E78.2 Mixed hyperlipidemia; Z66 Do not resuscitate; Z68.32 Body mass index [BMI] 32.0-32.9, adult; Z87.891 Personal history of nicotine dependence
CPT/HCPCS: 36415; 36600; 71045; 71275; 80048; 80053; 81001; 82728; 82805; 82948; 83036; 83615; 83735; 83880; 84100; 84466; 84478; 84484; 85025; 85027; 85380; 85610; 85730; 86140; 87040; 87086; 87088; 93005; 93306; 93970; 94002; 94003; 94640; 96360; 96361; 99285; A9270; J0456; J0696; J1100; J1650; J1815; J1940; J2060; J2270; J7030; J8540; Q9957; Q9967